=== PATIENT | female | born 1965 | race Caucasian/White ===

== ENCOUNTER 2020-02-08 17:00 | Outpatient (CLI) | payer OTHER, SELFPAY ==
[2020-02-08 17:21] LABS: Hematocrit 36.4 % (35.0-49.0); Hemoglobin 12.1 g/dL (12.0-15.0); Mean Corpuscular HGB Conc 33.2 g/dL (32.0-36.0); Mean Corpuscular Volume 93.3 fL (78.0-102.0); Mean Platelet Volume 11.2 fl (9.2-11.8); Platelet Count Result 203 K/mm3 (150-420); Red Cell Distribution Width 13.3 % (11.6-14.4); White Blood Count 4.7 K/mm3 (4.8-10.8)
[2020-02-08 18:05] LABS: Alanine Aminotransferase 31 U/L (14-59); Alkaline Phosphatase 76 U/L (46-116); Anion Gap 10.8 mmol/L (7-16); Aspartate Amino Transferase 18 U/L (15-37); Bilirubin,Total 0.4 mg/dL (0.00-1.00); Blood Urea Nitrogen 11 mg/dL (7-18); Calcium 8.9 mg/dL (8.5-10.1); Carbon Dioxide 31 mmol/L (21-32); Chloride 103 mmol/L (98-108); Estimated Glomerular Filt Rate > 60; Glucose 82 mg/dL (70-99); Lipase 164 U/L (73-393); Osmolality Calculated 290 mOsm/kg (285-295); Potassium 3.8 mmol/L (3.5-5.1); Sodium 141 mmol/L (136-145); Total Protein 6.9 g/dL (6.4-8.2)
== END 2020-02-08 17:01 | disposition home or self-care (01) ==
LOC: CHSLAB 17:02
PROVIDERS: PCP Family Medicine; Visit Provider Physician Assistant
DX: R10.11 Right upper quadrant pain (principal)
CPT/HCPCS: 36415; 80053; 83690; 85027

== ENCOUNTER 2020-11-08 09:00 | Outpatient (CLI) | payer OTHER, SELFPAY ==
[2020-11-08 10:15] LABS: Thyroid Stimulating Hormone Reflex 0.09 u/IU/mL (0.36-3.74)
[2020-11-08 10:49] LABS: Free T4 Free Thyroxine Reflex 1.17 ng/dL (0.76-1.46)
[2020-11-11 05:06] LABS: Thyroglobulin <0.1 ng/mL (2.8-40.9); Thyroglobulin Antibodies <1 IU/mL (<=1)
== END 2020-11-08 09:01 | disposition home or self-care (01) ==
LOC: CHSLAB 09:03
PROVIDERS: PCP Family Medicine
DX: E89.0 Postprocedural hypothyroidism (principal); Z85.850 Personal history of malignant neoplasm of thyroid
CPT/HCPCS: 36415; 84432; 84439; 84443; 86800

== ENCOUNTER 2021-02-21 17:03 | Outpatient (CLI) | payer OTHER, SELFPAY ==
[2021-02-21 18:00] LABS: Thyroid Stimulating Hormone Reflex 0.25 u/IU/mL (0.36-3.74)
[2021-02-21 18:26] LABS: Free T4 Free Thyroxine Reflex 1.11 ng/dL (0.76-1.46)
== END 2021-02-21 17:04 | disposition home or self-care (01) ==
LOC: CHSLAB 17:04
PROVIDERS: PCP Family Medicine
DX: E89.0 Postprocedural hypothyroidism (principal)
CPT/HCPCS: 36415; 84439; 84443

== ENCOUNTER 2021-03-17 14:06 | Outpatient (CLI) | payer OTHER, SELFPAY ==
--- NOTE | ~2021-03-17 | MM_ITS ---
EXAMINATION: MM screening [facility] BI w teddy HISTORY: Screening TECHNIQUE: Craniocaudal and mediolateral oblique 3-D tomosynthesis images were obtained and synthetic 2-D images were generated. CAD analysis was submitted and interpreted. COMPARISON: Comparison to multiple prior studies sequentially, with oldest reviewed study dated 11/01. BREAST PARENCHYMAL COMPOSITION: There are scattered areas of fibroglandular density. FINDINGS: There is no evidence of suspicious mass, calcification, or architectural distortion to sugg est malignancy in either breast. There has been no suspicious interval change. IMPRESSION: 1. No mammographic evidence of malignancy. 2. Recommend routine screening mammography in one year. BI-RADS Category 1: Negative Reviewed, dictated and finalized at location A.
== END 2021-03-17 14:07 | disposition home or self-care (01) ==
LOC: CHSIMG 14:07
PROVIDERS: PCP Family Medicine; Visit Provider Family Medicine
DX: Z12.31 Encounter for screening mammogram for malignant neoplasm of breast (principal)
CPT/HCPCS: 77063; 77067

== ENCOUNTER 2021-04-22 08:37 | Outpatient (CLI) | payer OTHER, SELFPAY ==
[2021-04-22 08:54] LABS: Hematocrit 37.7 % (35.0-49.0); Hemoglobin 12.5 g/dL (12.0-15.0); Mean Corpuscular HGB Conc 33.2 g/dL (32.0-36.0); Mean Corpuscular Hemoglobin 31.3 pg (27.0-31.0); Mean Corpuscular Volume 94.5 fL (78.0-102.0); Mean Platelet Volume 11.1 fl (9.2-11.8); Platelet Count Result 265 K/mm3 (150-420); Red Blood Count 3.99 M/mm3 (4.20-5.40); Red Cell Distribution Width 13.6 % (11.6-14.4); White Blood Count 3.8 K/mm3 (4.8-10.8)
[2021-04-22 09:58] LABS: Alanine Aminotransferase 19 U/L (14-59); Albumin Level 3.9 g/dL (3.4-5.0); Alkaline Phosphatase 94 U/L (46-116); Anion Gap 6 mmol/L (8-16); Aspartate Amino Transferase 21 U/L (15-37); Bilirubin,Total 0.4 mg/dL (0.00-1.00); Blood Urea Nitrogen 17 mg/dL (7-18); Calcium 8.9 mg/dL (8.5-10.1); Carbon Dioxide 31 mmol/L (21-32); Chloride 104 mmol/L (98-108); Cholesterol 207 mg/dL (0-200); Estimated Glomerular Filt Rate > 60; Glucose 89 mg/dL (70-99); HDL Direct 74 mg/dL (40-60); LDL Cholesterol Calculated 122 mg/dL (<130); Osmolality Calculated 292 mOsm/kg (285-295); Potassium 4.3 mmol/L (3.5-5.1); Sodium 141 mmol/L (136-145); Total Protein 6.7 g/dL (6.4-8.2); Triglycerides 56 mg/dL (0-150)
== END 2021-04-22 08:38 | disposition home or self-care (01) ==
LOC: CHSLAB 08:39
PROVIDERS: PCP Family Medicine; Visit Provider Physician Assistant
DX: Z00.00 Encounter for general adult medical examination without abnormal findings (principal); Z13.1 Encounter for screening for diabetes mellitus; Z13.220 Encounter for screening for lipoid disorders; Z11.52 Encounter for screening for COVID-19; D64.9 Anemia, unspecified
CPT/HCPCS: 36415; 80053; 80061; 85027; 86769

== ENCOUNTER 2021-11-13 11:28 | Outpatient (CLI) | payer OTHER, SELFPAY ==
[2021-11-13 12:31] LABS: Thyroid Stimulating Hormone Reflex 0.09 u/IU/mL (0.36-3.74)
[2021-11-15 03:00] LABS: Thyroglobulin Antibodies <1 IU/mL (<=1)
== END 2021-11-13 11:29 | disposition home or self-care (01) ==
LOC: CHSLAB 11:33
PROVIDERS: PCP Family Medicine
DX: E89.0 Postprocedural hypothyroidism (principal)
CPT/HCPCS: 36415; 84432; 84439; 84443; 86800

== ENCOUNTER 2022-01-08 13:59 | Outpatient (CLI) | payer OTHER, SELFPAY ==
[2022-01-08 15:00] LABS: Free T4 Free Thyroxine 1.11 ng/dL (0.76-1.46); Thyroid Stimulating Hormone 0.07 uIU/mL (0.36-3.74)
== END 2022-01-08 14:00 | disposition home or self-care (01) ==
LOC: CHSLAB 14:02
PROVIDERS: PCP Family Medicine
DX: Z85.850 Personal history of malignant neoplasm of thyroid (principal); E89.0 Postprocedural hypothyroidism
CPT/HCPCS: 36415; 84439; 84443

== ENCOUNTER 2022-03-27 10:10 | Outpatient (CLI) | payer OTHER, SELFPAY ==
[2022-03-27 11:12] LABS: Free T4 Free Thyroxine 1.13 ng/dL (0.76-1.46); Thyroid Stimulating Hormone 0.14 uIU/mL (0.36-3.74)
== END 2022-03-27 10:11 | disposition home or self-care (01) ==
LOC: CHSLAB 10:13
PROVIDERS: PCP Family Medicine
DX: Z85.850 Personal history of malignant neoplasm of thyroid (principal); E89.0 Postprocedural hypothyroidism
CPT/HCPCS: 36415; 84439; 84443

== ENCOUNTER 2022-09-07 11:29 | Outpatient (CLI) | payer OTHER, SELFPAY ==
[2022-09-07 12:21] LABS: Thyroid Stimulating Hormone 0.24 uIU/mL (0.36-3.74)
== END 2022-09-07 11:30 | disposition home or self-care (01) ==
LOC: CHSLAB 11:32
PROVIDERS: PCP Family Medicine
DX: Z85.850 Personal history of malignant neoplasm of thyroid (principal); E89.0 Postprocedural hypothyroidism
CPT/HCPCS: 36415; 84439; 84443

== ENCOUNTER 2023-04-04 12:36 | Outpatient (CLI) | payer OTHER, SELFPAY ==
[2023-04-04 13:31] LABS: Free T4 Free Thyroxine 1.37 ng/dL (0.76-1.46); Thyroid Stimulating Hormone 0.06 uIU/mL (0.36-3.74)
[2023-04-08 04:22] LABS: Thyroid Peroxidase Antibodies 3 IU/mL (<9)
[2023-04-09 14:34] LABS: Thyroid Stimulating Immunoglob <89 % baseline (<140)
== END 2023-04-04 12:37 | disposition home or self-care (01) ==
LOC: CHSLAB 12:39
PROVIDERS: PCP Family Medicine
DX: E89.0 Postprocedural hypothyroidism (principal); Z85.850 Personal history of malignant neoplasm of thyroid
CPT/HCPCS: 36415; 84439; 84443; 84445; 86376

== ENCOUNTER 2023-06-28 10:02 | Outpatient (CLI) | payer OTHER, SELFPAY ==
[2023-06-28 10:54] LABS: Free T4 Free Thyroxine 1.14 ng/dL (0.76-1.46); Thyroid Stimulating Hormone 0.25 uIU/mL (0.36-3.74)
[2023-07-02 05:30] LABS: Thyroglobulin <0.1 ng/mL (2.8-40.9); Thyroglobulin Antibodies <1 IU/mL (<=1)
== END 2023-06-28 10:03 | disposition home or self-care (01) ==
LOC: CHSLAB 10:05
PROVIDERS: PCP Family Medicine
DX: E89.0 Postprocedural hypothyroidism (principal); Z85.850 Personal history of malignant neoplasm of thyroid
CPT/HCPCS: 36415; 84432; 84439; 84443; 86800

== ENCOUNTER 2023-11-16 12:07 | Outpatient (CLI) | payer OTHER, SELFPAY ==
[2023-11-16 13:18] LABS: Free T4 Free Thyroxine 1.19 ng/dL (0.76-1.46); Thyroid Stimulating Hormone 0.21 uIU/mL (0.36-3.74)
== END 2023-11-16 12:08 | disposition home or self-care (01) ==
PROVIDERS: PCP Family Medicine
DX: E89.0 Postprocedural hypothyroidism (principal); Z85.850 Personal history of malignant neoplasm of thyroid
CPT/HCPCS: 36415; 84439; 84443

== ENCOUNTER 2024-04-15 14:01 | Outpatient (CLI) | payer OTHER, SELFPAY ==
[2024-04-15 15:07] LABS: Free T4 Free Thyroxine 1.19 ng/dL (0.76-1.46); Thyroid Stimulating Hormone 0.26 uIU/mL (0.36-3.74)
[2024-04-17 07:54] LABS: Thyroglobulin <0.1 ng/mL; Thyroglobulin Antibodies <1 IU/mL (< or = 1)
== END 2024-04-15 14:02 | disposition home or self-care (01) ==
LOC: CHSLAB 14:04
PROVIDERS: PCP Family Medicine
DX: E89.0 Postprocedural hypothyroidism (principal); Z85.850 Personal history of malignant neoplasm of thyroid
CPT/HCPCS: 36415; 84432; 84439; 84443; 86800

== ENCOUNTER 2024-08-17 12:13 | Outpatient (CLI) | payer OTHER, SELFPAY ==
[2024-08-17 17:07] LABS: Free T4 Free Thyroxine 1.13 ng/dL (0.76-1.46)
== END 2024-08-17 12:14 | disposition home or self-care (01) ==
LOC: CHSLAB 12:16
PROVIDERS: PCP Family Medicine
DX: E89.0 Postprocedural hypothyroidism (principal)
CPT/HCPCS: 36415; 84439; 84443

== ENCOUNTER 2024-11-05 07:53 | Outpatient (CLI) | payer OTHER, SELFPAY ==
[2024-11-05 08:11] LABS: Hematocrit 37.2 % (35.0-49.0); Hemoglobin 12.4 g/dL (12.0-15.0); Mean Corpuscular HGB Conc 33.3 g/dL (32-36); Mean Corpuscular Hemoglobin 31.5 pg (27.0-31.0); Mean Corpuscular Volume 94.4 fL (78.0-102.0); Mean Platelet Volume 10.2 fl (9.2-11.8); Platelet Count Result 229 K/mm3 (150-420); Red Blood Count 3.94 M/mm3 (4.20-5.40); Red Cell Distribution Width 13.2 % (11.6-14.4); White Blood Count 2.7 K/mm3 (4.8-10.8)
[2024-11-05 08:40] LABS: Band Neutrophils Percent 0 % (0-6); Eosinophils Absolute Manual 0.16 K/mm3 (0.02-0.50); Eosinophils Percent Manual 6 % (1-6); Lymphocytes Absolute Manual 1.18 K/mm3 (1.1-4.5); Lymphocytes Percent Manual 44 % (18-44); Monocytes Absolute Manual 0.18 K/mm3 (0.1-0.90); Monocytes Percent Manual 7 % (3-9); Neutrophils Absolute Manual 1.16 K/mm3 (1.7-7.2); Neutrophils Percent Manual 43 % (46-73); Platelet Estimate Adequate (Adequate); Total Cells Counted 100
[2024-11-05 09:55] LABS: Alanine Aminotransferase 27 U/L (14-59); Albumin Level 3.8 g/dL (3.4-5.0); Alkaline Phosphatase 85 U/L (46-116); Anion Gap 10 mmol/L (4-12); Aspartate Amino Transferase 23 U/L (15-37); Bilirubin,Total 0.6 mg/dL (0.00-1.00); Blood Urea Nitrogen 9 mg/dL (7-18); Calcium 8.9 mg/dL (8.5-10.1); Carbon Dioxide 28 mmol/L (21-32); Chloride 105 mmol/L (98-108); Cholesterol 197 mg/dL (0-200); Estimated Glomerular Filt Rate > 60; Folic Acid 16.5 ng/mL (8.6->20); Free T4 Free Thyroxine 1.24 ng/dL (0.76-1.46); Glucose 87 mg/dL (70-99); HDL Direct 83 mg/dL (40-60); LDL Cholesterol Calculated 106 mg/dL (<130); Osmolality Calculated 293 mOsm/kg (285-295); Potassium 4.3 mmol/L (3.5-5.1); Sodium 143 mmol/L (136-145); Thyroid Stimulating Hormone 0.32 uIU/mL (0.36-3.74); Total Protein 6.8 g/dL (6.4-8.2); Triglycerides 41 mg/dL (0-150); Vitamin B12 840 pg/mL (193-986)
[2024-11-07 05:13] LABS: Vitamin D 25 Hydroxy 37 ng/mL (30-100)
[2024-11-09 09:14] LABS: Thyroglobulin <0.1 ng/mL; Thyroglobulin Antibodies <1 IU/mL (< or = 1)
== END 2024-11-05 07:54 | disposition home or self-care (01) ==
PROVIDERS: PCP Family Medicine; Visit Provider Student in an Organized Health Care Education/Training Program
DX: Z00.00 Encounter for general adult medical examination without abnormal findings (principal); E89.0 Postprocedural hypothyroidism
CPT/HCPCS: 36415; 80053; 80061; 82306; 82607; 82746; 84432; 84439; 84443; 85025; 86800

== ENCOUNTER 2024-12-10 13:50 | Outpatient (CLI) | payer OTHER, SELFPAY ==
--- NOTE | ~2024-12-10 | MM_ITS ---
EXAMINATION: MM screening [facility] BI w teddy HISTORY: Screening TECHNIQUE: Craniocaudal and mediolateral oblique 3-D tomosynthesis images were obtained and synthetic 2-D images were generated. CAD analysis was submitted and interpreted. COMPARISON: Comparison to multiple prior studies sequentially, with oldest reviewed study dated 11/01. BREAST PARENCHYMAL COMPOSITION: Not dense: There are scattered areas of fibroglandular density. FINDINGS: There is no evidence of suspicious mass, calcification, or architectural distortion to sugg est malignancy in either breast. There has been no suspicious interval change. IMPRESSION: 1. No mammographic evidence of malignancy. 2. Recommend routine screening mammography in one year. BI-RADS Category 1: Negative Reviewed, dictated and finalized at location B. 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
--- NOTE | ~2024-12-10 | DEXA_ITS ---
Bone Density Report Name: STEWART DURAN Age: 59 Sex: Female Ethnicity: White Date of : 1965 Indication: postmenopausal; screening for osteoporosis; cancer; Referring Provider: JADEN GONZALEZ Study: Bone densitometry was performed. Exam Date: December 10, 2024 Accession number: [id number] Bone Density: Region BMD T-score Z-score Classification AP Spine(L1-L4) 0.977 -0.6 0.7 Normal Femoral Neck (Left) 0.748 -0.9 0.3 Normal Total Hip (Left) 0.807 -1.1 -0.3 Osteopenia Femoral Neck (Right) 0.657 -1.7 -0.5 Osteopenia Total Hip (Right) 0.782 -1.3 -0.5 Osteopenia Femoral Neck Mean 0.703 -1.3 -0.1 Osteopenia Total Hip Mean 0.794 -1.2 -0.4 Osteopenia World Health Organization criteria for BMD impression classify patients as: Normal (T-score at or above -1.0), Osteopenia (T-score between -1.0 and -2.5), or Osteoporosis (T-score at or below -2.5). 10-year Fracture Risk(1): Major Osteoporotic Fracture 7.5% Hip Fracture 0.8% Reported Risk Factors: [place] (), Neck BMD=0.657, BMI=21.9 (1) FRAX(R) Version 3.08. Fracture probability calculated for an untreated patient. Fracture probability may be lower if the patient has received treatment. Clinical Information Provided by Patient: Has used the following medications: Vitamin D, Calcium Has the following medical conditions: Cancer Patient maximum height was 65 Menopause Age: 48 No regular weight bearing exercise Drinks caffeinated beverages Onset of menses at age 16 Number of children 2 Impression: The patient has low bone mass, based on the Right Femoral Neck T-score. Discussion: BONE DENSITY IS LOW AT ONE OR MORE SKELETAL SITES. This patient's lowest T-score is low at one or more skeletal sites. It meets the World Health Organization's (WHO) criteria for ?low bone mass? (T-score between -1.0 and -2.5). The patient's 10-year risk of fracture as calculated by FRAX is less than the threshold where pharmacological therapy is recommended by the National Osteoporosis Foundation (NOF). However, all treatment decisions require clinical judgment and consideration of individual patient factors, including patient preferences, comorbidities, previous drug use, risk factors not captured in the FRAX model (e.g., frailty, falls, vitamin D deficiency, increased bone turnover, interval significant decline in bone density) and possible under or overestimation of fracture risk by FRAX. The patient should follow a healthful lifestyle (good nutrition with adequate calcium and vitamin D, and appropriate weight-bearing exercise). Follow-Up: Consider repeating this study in 2 to 3 years to reassess this patient's status, or sooner if there is some new clinical indication. Reported by: LEFTY on 12/10/2024 2:15:00 PM. Reviewed, dictated and finalized at location AMaddie LANTIGUA
== END 2024-12-10 13:51 | disposition home or self-care (01) ==
LOC: CHSIMG 13:51
PROVIDERS: PCP Family Medicine; Visit Provider Student in an Organized Health Care Education/Training Program
DX: Z12.31 Encounter for screening mammogram for malignant neoplasm of breast (principal); Z78.0 Asymptomatic menopausal state; M85.89 Other specified disorders of bone density and structure, multiple sites
CPT/HCPCS: 77063; 77067; 77080

== ENCOUNTER 2025-02-24 00:16 | Day surgery (SDC) | payer OTHER, SELFPAY ==
[2025-02-15 09:30] VITALS: BMI 22.3
--- OUTSIDE RECORDS SUMMARY | 2025-02-24 00:19 | XMS_ITS | Data Portability ---
Author Organization [facility] Address [address] [place] [address] Care Team Providers Care Personal Financial Representative Name Role Phone EDDIE SPARROW Primary Care Provider Assessment Encounter Date Assessment Date Assessment LastModified by Organization Details LastModified Time 10/23/2021 10/23/2021 healthy female exam/menopaus e patient declines std testing pap done, discussed guidelines mammogram ordered and encouraged colonoscopy referral placed dexa baseline in next 5 years discussed estrace cream if needed for atrophy. she will consider. Encouraged weight bearing exercise and 1500mg daily of Calcium with Vitamin D FU 1 year or prn [email or web address] Not available 10/23/2021 15:33:15 Plan of Treatment Reminders Order Date Submit Date Provider Last Modified By Organization Details Last Modified Time Details Appointments None record ed. Lab None record ed. Referral None record ed. Procedures None record ed. Surgeries None record ed. Imaging None record ed. Medication Orders None record ed. Patient TargetsNo targets recorded. Patient InstructionsNo instructions recorded. Reason for Referral None Reported. Results Created Date Observation Date Name Description Value Unit Range Abnormal Flag Note LastModifiedBy Organization Detail LastModifiedTime 10/23/20 21 10/23/2021 IMAGE GUIDE D PAP AND HPV REGAR DLESS image guided Pap, HPV regardless of Pap result SEE RESULT S BELOW CASE REPOR T: Cytol ogy Gynec ologi vinay Repor t Case: [id number] Autho shahla g Provi montse: Haydee Contreras MD Colle cted: 10/23 1618 Order ing Locat ion: [place] [facility] Recei dick: 10/24 0103 First Scree n: Rigo Burks ed, CT Speci men: Scree jose luis Pap - Image d, Cervi x STATE MENT OF ADEQU ACY: Satis facto ry for evalu ation Trans forma tion zone compo nent prese nt FINAL DIAGN OSIS: Negat pipo for Intra epith elial Lesio n or Patti grayson (NIL) . Elect noe holm dante d by Rigo Burks ed, CT on 2020 at 6:58 PM ----- ----- ----- ----- ----- ----- ----- ----- ----- ----- ----- ----- ----- ----- ----- ----- ----- ---- HPV RESUL TS: HPV mRNA E6/E7 : No HPV mRNA Detec maye NOTE: This high risk HPV mRNA assay detec ts fourt een high- risk HPV types (16, 18, 31, 33, 35, 39, 45, 51, 52, 56, 58, 59, 66, 68) witho ut diffe renti ation . COMME NT: Note: This speci men was revie wed by a Cytot echno logis t and/o r Patho logis t (as indic ated in this repor t) after evalu ation using the Thinp rep Imagi ng Syste m. CLINI VINAY INFOR MATIO N: Menst rual Statu s: LMP (if appli cable ): Clini vinay Histo ry/Pr eviou s Pap: Type of Neopl lidia (if appli cable ): Signi fican t Clini vinay Findi ngs: Other Histo ry: Hormo brody (if appli cable ): PAP EDUCA CHIO L NOTE: The Pap Test is a scree jose luis test with an inher ent false negat pipo rate. Liqui d-bas e sampl ing may decre ase, but will not elimi susan, false negat pipo resul ts. A negat pipo resul t does not precl ude the prese nce and/o r devel opmen t of disea se, since the prese nce of abnor mal cells in the sampl e depen ds on the locat ion of the lesio n and sampl ing techn ique. Ros nued regul ar scree jose luis is the best metho d of cance r preve ntion . If repor maye cytol ogic findi ng do not corre late with physi vinay and/o r histo rical findi ngs, furth er inves tigat ion is recom gene d, as clini michelle samuels nted. Not Available [facility] (Lab) [address], [place], [address], 11/01/2021 20:00:29 Result Notes None recorded. Procedures Surgical History Date Name Laterality Status Provider Name and Address Organization Details Recorded Time 12/02/19 20 Date of Last Mammogram completed [facility] 10/23/2021 15:05:11 12/02/19 18 appendectomy completed [facility] 10/23/2021 14:50:59 12/02/19 16 thyroidectomy completed [facility] 10/23/2021 14:50:51 Imaging Results None recorded. Procedure Notes None recorded. Medical Equipment None Reported. Allergies No known drug allergies Medications Name Sig Start Date Stop Date Status Note LastModified by Organization Details LastModified Time valacyclovir 1 gram tablet 10/23 completed Not Available Not Available Not Available levothyroxine 88 mcg tablet active Not Available Not Availabl e Not Available omeprazole 20 mg capsule,delayed release active Not Available Not Available Not Available Vitals Date Recorded Body height Body mass index (BMI) Body weight Systolic blood pressure Diastolic blood pressure Systolic blood pressure Diastolic blood pressure Provider Name and Address Organization Details Last Updated DateTime 1 162.56 cm 20.9 kg/m2 56849.2 7 g 147 mm[Hg] 76 mm[Hg] 122 mm[Hg] 78 mm[Hg] [facility] 15:00:07 Social History None recorded. Functional Status None recorded. Mental Status None recorded. Family History Relationship Description Onset Age of this Age Resolved Age Notes LastModified by Organization Details LastModified Time Mother Hypertensive disorder [email or web address] Not available 2020 15:04:17 Father Hypertensive disorder [email or web address] Not available 2020 15:04:17 Father Heart disease smcaley Not available 2020 15:04:26 Brother Hypertensive disorder smcaley Not available 2020 15:04:17 Maternal Grandmother Carcinoma in situ of breast smcaley Not available 2020 15:04:41 Maternal Grandmother Diabetes mellitus [email or web address] Not available 2020 15:04:54 Maternal Aunt Diabetes mellitus [email or web address] Not available 2020 15:04:54 Medical History Condition Response Other N Blood Transfusion N Dermatologic Disorders N Gestational Diabetes N Anxiety Disorder N Autoimmune disease N Arthritis N Polyps N Infertility N Acid Reflux (GERD) N Cancer N Varicosities N Stroke N Neurologic/Epilepsy N Fibromyalgia N Headaches N Kidney Disease N Heart Problems N Kidney or Bladder Problems N Eating Disorder N Art (IVF or FET) N Hepatitis/Liver Disease N No Past Medical History N Urinary Tract Infection N Asthma N Trauma/Violence N Thrombophilias N Allergies (Food, seasonal, environmental ) N Breast Cancer N Drug/Latex Allergies/Reactions N Lung Disease N Defects or Inherited Disease N Breast Problem N Hematologic disorders N Anesthesia Complications N History of STI N Deep Vein Thrombosis N Polycystic ovary syndrome N History of abnormal pap N Endometriosis N High Cholesterol N Thyroid Problems N GI Problems N Anemia N Psychiatric Illness N Ovarian Cancer N Diabetes N Pulmonary (TB, Asthma) N Eczema N Abuse/Domestic Violence N Depression/ depression N Heart Disease N Pre-Eclampsia N Hypertension N Osteoporosis N Gynecological History Statement/Question Response Current Control Method None Date of Last Mammogram 12/02/2019 14 Obstetrics History GPAL:G 2 P 2 0 0 2 Type Value Full Term 2 Living 2 Total 2 Past Encounters Encounter ID Performer Location Encounter Start Date Encounter Closed Date Diagnosis/Indication Diagnosis SNOMED-CT Code Diagnosis ICD10 Code Diagnosis Note [id number] Haydee Mcdowell MD [facility] [address] [address] 10/23/2021 14:47:24 10/23/2021 15:35:05 Gynecologic examination 89162324 Z01.419 Atrophic vaginitis 47178 000 N95.2 Health Concerns Section Related Observation LastModified by Organization Detai ls LastModified Time None Recorded Concern Status LastModified by Organization Details LastModified Time None Recorded Advance Directives Directive None Recorded Payers Encounter Date Sequence Insurance Name Policy Number Policy Gutierrez Covered Member ID Gutierrez Member ID Guarantor Name 10/23/2021 1 [employer] - DOS PRIOR TO 21 - [facility] BENEFITS PLAN Kin Baxter [id number] OI Notes Date Note Type Note Provider Name and Address Organization Details Recorded Time 10/23/2021 text/html Patient is a 56yo who presents for an annual exam. menopause 48yo , no bleeding, no concerns. last pap-2016, all normal mammo-2020 colonoscopy-none dexa-none menopause-48yo sexually active-y seatbelts-y exercise-y depression-denie s domestic violence-denies tobacco-n concerns-n Haydee Mcdowell MD [address], [place], [address], [facility] 10/23/2021 15:33:49 OBGyn Episode Ob Episode Information Episode Created Date Number of Fetuses Patient Bloodtype Patient rh Status Prepregnancy Weight lbs Domestic Partner Domestic Partner Phone Father Name Seafood Packer Status 10/23/20 1 CLOSED Fetus Data First Name Last Name Admitted to NICU Weight (g) Sex Living Outcome Pediatric Complications Fetus ID Race Codes Race Delivery Type M [id number] Lucas Calculation Initial Lucas Date Initial Exam Date Initial Exam Provider Initial Ultrasound Date Last Menstrual Period Date Ultra Sound Weeks Gestation 0 Eighteen To Twenty Week Lucas Update Ultra Sound Date Fundal Height At Umbil Quickening Date Ultra Sound Latest Weeks Gestation Final Lucas Confirmed By Final Lucas Confirmed Date Final Lucas Date Ultra Sound Latest Days Gestation 0 0 Menstrual History Last Menstrual Date Menses Monthly On Bcp Conception Prior Menses Frequency Hcg Plus Date Menarche Onset Age Delivery Information Delivery Date Delivery Type Labor Anesthesia Weeks Gestation Incision Type Labor Labor Length Hrs Delivered By Post Complications Tubal Sterilization Discharge Date Comments 0 Discharge Information Feeding Method Contraceptive Method Maternal HG B and HCT Levels Ob Episode Information Episode Created Date Number of Fetuses Patient Bloodtype Patient rh Status Prepregnancy Weight lbs Domestic Partner Domestic Partner Phone Father Name Seafood Packer Status 10/23/20 21 1 CLOSED Fetus Data First Name Last Name Admitted to NICU Weight (g) Sex Living Outcome Pediatric Complications Fetus ID Race Codes Race Delivery Type M [id number] Lucas Calculation Initial Lucas Date Initial Exam Date Initial Exam Provider Initial Ultrasound Date Last Menstrual Period Date Ultra Sound Weeks Gestation 0 Eighteen To Twenty Week Lucas Update Ultra Sound Date Fundal Height At Umbil Quickening Date Ultra Sound Latest Weeks Gestation Final Lucas Confirmed By Final Lucas Confirmed Date Final Lucas Date Ultra Sound Latest Days Gestation 0 0 Menstrual History Last Menstrual Date Menses Monthly On Bcp Conception Prior Menses Frequency Hcg Plus Date Menarche Onset Age Delivery Information Delivery Date Delivery Type Labor Anesthesia Weeks Gestation Incision Type Labor Labor Length Hrs Delivered By Post Complications Tubal Sterilization Discharge Date Comments 3 Discharge Information Feeding Method Contraceptive Method Maternal HG B and HCT Levels
--- OUTSIDE RECORDS SUMMARY | 2025-02-24 00:19 | XMS_ITS | Clinical Summary ---
Author Organization [facility] Address [address] [place] [address] Care Team Providers Care Food Service Utility Worker Name Role Phone Karina Salamanca MD Primary Care Provider [phone] Allergies No known active allergies Medications omeprazole (PriLOSEC) 20 mg capsuleIndications :Laryngopharyngeal reflux (LPR) TAKE 1 CAPSULE BY MOUTH EVERY DAY 90 capsule 1 11/21/20 20 Active valACYclovir (VALTREX) 1 gram tablet valacyclovir 1 gram tablet TAKE 1 TABLET BY MOUTH EVERY 8 HOURS NEEDED FOR COLD SORES Active levothyroxine (SYNTHROID) 75 mcg tabletIndications: History of thyroid cancer,Postoperati ve hypothyroidism TAKE 1 TABLET BY MOUTH 1 DAY PER WEEK IN THE MORNING 30-60 MINS PRIOR TO BREAKFAST 12 tablet 2 08/24/20 24 Active levothyroxine (SYNTHROID) 88 mcg tabletIndications: History of thyroid cancer,Postoperati ve hypothyroidism TAKE 1 TABLET BY MOUTH 6 DAYS PER WEEK IN THE MORNING 30-60 MINS PRIOR TO BREAKFAST 72 tablet 2 08/24/[address] (VOLTAREN) 50 mg EC tablet 50 MG ORALLY TWICE A DAY 12/25/19 25 Active Synthroid 50 mcg tablet Take 1 tablet (50 mcg total) by mouth daily 28 tablet 01/12/20 25 Active Active Problems Problem Noted Date Diagnosed Date Laryngopharyngeal reflux (LPR) 08/03/2020 Postoperative hypothyroidism 08/04/2018 Assessment & Plan (12/09/2022 10:25 PM STITCH BURNISHER): Clinically euthyroid Continue current thyroid hormone replacement Check TSH/FT4 Assessment & Plan (11/21/2021 8:41 AM STITCH BURNISHER): Most recent TSH is <0.1, but Ms. Duran notes she feels well and is reluctant to decrease her thyroid hormone supplementation. Dose of LT4 was previously decreased by 1/2 tab per week, and she notes that she felt worse on that regimen, with less energy. Will continue current dose of LT4 88 mcg, which she is taking appropriately, but change to brand name Synthroid to reduce dose variability and repeat labs in 4-6 weeks. If TSH of < 0.1 persists, will require a dose adjustment. Discussed long- term implications of subclinical hyperthyroidism (loss of bone mass and increased risk of a. Fib, juan j after the age of 60). Assessment & Plan (11/20/2020 1:59 PM STITCH BURNISHER): Clinically euthyroid and feeling well, although TSH is < 0.1 at 0.09 Given that she is clinically euthyroid and is not exhibiting signs or symptoms of iatrogenic hyperthyroidism, will continue current thyroid hormone replacement and repeat thyroid labs in 6-8 weeks, to monitor TSH trend. Assessment & Plan (08/04/2018 3:18 PM CDT): Appears clinically euthyroid. Will check TSH, FT4. History of thyroid cancer 08/04/2018 Assessment & Plan (12/09/2022 10:26 PM STITCH BURNISHER): No evidence of recurrence based on thyroid US today or physical exam Will follow Tg and Tg ab Assessment & Plan (11/21/2021 8:42 AM STITCH BURNISHER): Ms. Duran may have been a candidate for COLLADO initially, given previously persistent Tg ab elevation, age > 40, multifocal disease with extra thyroid invasion; however, she is not a high risk patient, and her Tg and Tg antibody are now negative and her thyroid US is without evidence of tumor recurrence. Continue annual follow up with Tg/Tg ab, keep TSH at the lower limit of normal Follow up neck US She will call if she develops any new neck symptoms Assessment & Plan (11/20/2020 1:58 PM STITCH BURNISHER): No recurrence by Tg, Tg ab or prior US Will follow up with an US, since last one was >2 years ago, for screening. However, low suspicion for disease recurrence, singe her Tg and Tg ab have been consistent with neck imaging Assessment & Plan (08/04/2018 3:19 PM CDT): 1. Papillary thyroid cancer: -Ms. Duran may have been a candidate for COLLADO initially, given persistent Tg ab elevation, age > 40, multifocal disease with extra thyroid invasion; however, she is not a high risk patient, and her Tg and Tg antibody are now negative -Repeat Tg and Tg Ab now -Repeat thyroid US now Encounters Date Type Department Care Team Description 01/12/2025 3:40 PM STITCH BURNISHER Office Visit [facility] Endocrinology Metabolism and Lipid [address] [facility] [address] [place] [address] [place] [address] Giuliana Manley MD Postoperative hypothyroidism (Primary Dx); History of thyroid cancer 01/12/2025 1:10 PM STITCH BURNISHER - 01/12/2025 11:59 PM STITCH BURNISHER Hospital Encounter [facility] [address] [place] [address] History of thyroid cancer Discharge Disposition: Discharge to home or self care from Last 3 Months Surgical History Surgery Date Site/Laterality Comments APPENDECTOMY THYROIDECTOMY NECK MASS EXCISION 10/02/2016 Right Medical History Medical History Date Comments Cancer (HCC) head and neck Gastric reflux Varicella Papillary thyroid carcinoma (HCC) Hearing loss Thyroid disease GERD (gastroesophageal reflux disease) Family History Medical History Relation Name Comments Hypertension Brother Heart disease Father Family history of cardiac disorder - (Added by TW Conv) Hypertension Father Family history of hypertension - (Added by TW Conv) Hypertension Mother Family history of hypertension - (Added by TW Conv) Hypertension Son Family history of hypertension - (Added by TW Conv) Relation Name Status Comments Brother Father Mother Son Social History Tobacco Use Types Packs/Day Years Used Date Smoking Tobacco: Never Smokeless Tobacco: Never Tobacco Cessation:Counseling Given: Not Answered Comments Unknown Sex and Gender Information Value Date Recorded Sex Assigned at Not on file Legal Sex Female 6:10 AM STITCH BURNISHER Gender Identity Female 06/11/2018 10:33 AM CDT Sexual Orientation Straight 11/11/2020 6: 44 AM STITCH BURNISHER Obstetrics History Last Filed Vital Signs Vital Sign Reading Time Taken Comments Blood Pressure 148/78 01/12/2025 3:05 PM STITCH BURNISHER Pulse 69 01/12/2025 3:05 PM STITCH BURNISHER Temperature 36.8 C (98.2 F) 01/12/2025 3:05 PM STITCH BURNISHER Respiratory Rate - - Oxygen Saturation 97% 10/02/2016 12:54 PM CDT Inhaled Oxygen Concentration - - Weight 58 kg (127 lb 12.8 oz) 01/12/2025 3:05 PM STITCH BURNISHER Height 165.1 cm (5' 5 ) 01/12/2025 3:05 PM STITCH BURNISHER Body Mass Index 21.27 01/12/2025 3:05 PM STITCH BURNISHER Plan of Treatment Health Maintenance Due Date Last Done Comments Breast Cancer Screening-Mammogram 1966 Cervical Cancer Screening 1966 Colon Cancer Screening-Colonoscopy 1966 Depression Screening 1966 Hepatitis C Screening 1966 Hepatitis B Screening 1984 Regular Well Visit/Exam 18-64 1984 Zoster Vaccine (1 of 2) 2016 Influenza Vaccine (#1) 2024 DTaP/Tdap/Td Vaccine (2 - Td or Tdap) 06/12/2028 06/12/2018 Pneumococcal vaccine <65 Aged Out No longer eligible based on patient's age to complete this topic Procedures Procedure Name Priority Date/Time Associated Diagnosis Comments US THYROID Schedule Routine, Read Routine (OP Routine) 01/12/2025 2:16 PM STITCH BURNISHER History of thyroid cancer from Last 3 Months Results * US Thyroid (01/12/2025 2:16 PM STITCH BURNISHER) Anatomical Region Laterality Modality Head and Neck N/A Ultrasound 01/12/2025 2:32 PM STITCH BURNISHER Impressions 01/12/2025 2:32 PM STITCH BURNISHER 1. No evidence of tumor recurrence. Electronically signed by: Melissa Jean-Baptiste M.D. Narrative 01/12/2025 2:32 PM STITCH BURNISHER EXAMINATION: POST THYROIDECTOMY SONOGRAM HISTORY: 59-year-old woman with history of T1b multifocal papillary thyroid cancer status post total thyroidectomy in 2016, no rigoberto metastases, no further treatment, most recent was undetectable in April 2024. COMPARISON: 11/14/2022 sonogram FINDINGS: There are postoperative changes of thyroidectomy. There is no evidence of tumor recurrence in the thyroid bed. There are 2 subjacent benign-appearing lymph nodes in the left superior thyroidectomy bed, demonstrating normal hilar vascularity, and are unchanged from prior. There are benign appearing lymph nodes within the central and both lateral compartments of the neck. No suspicious lymph nodes are identified. A mildly prominent left level 4 lymph node is morphologically benign and demonstrates normal hilar vascularity, without suspicious features, also unchanged from prior. Procedure Note Melissa Jean-Baptiste MD - 01/12/2025 EXAMINATION: POST THYROIDECTOMY SONOGRAM HISTORY: 59-year-old woman with history of T1b multifocal papillary thyroid cancer status post total thyroidectomy in 2015, no rigoberto metastases, no further treatment, most recent was undetectable in April 2024. COMPARISON: 11/14/2022 sonogram FINDINGS: There are postoperative changes of thyroidectomy. There is no evidence of tumor recurrence in the thyroid bed. There are 2 subjacent benign-appearing lymph nodes in the left superior thyroidectomy bed, demonstrating normal hilar vascularity, and are unchanged from prior. There are benign appearing lymph nodes within the central and both lateral compartments of the neck. No suspicious lymph nodes are identified. A mildly prominent left level 4 lymph node is morphologically benign and demonstrates normal hilar vascularity, without suspicious features, also unchanged from prior. IMPRESSION: 1. No evidence of tumor recurrence. Electronically signed by: Melissa Jean-Baptiste M.D. us Giuliana Manley MD [facility] PROCEDURES Final Result from Last 3 Months Insurance [employer] [facility] OPEN ACCESS [facility] [id number] Care Teams Food Service Utility Worker Relationship Specialty Start Date End Date Karina Salamanca MD PCP - General 01/03/18
--- OUTSIDE RECORDS SUMMARY | 2025-02-24 00:19 | XMS_ITS | Referral Summary ---
Author Organization [facility] Address [address] [place] [address] Care Team Providers Care Speck Dyer Name Role Phone Karina Salamanca MD Primary Care Provider Encounters Date Type Department Care Team Description 01/12/2025 1:10 PM SUPERVISOR CONTINGENTS - 01/12/2025 11:59 PM SUPERVISOR CONTINGENTS Hospital Encounter [facility]) [address] [place] [address] History of thyroid cancer Discharge Disposition: Discharge to home or self care 01/12/2025 3:40 PM SUPERVISOR CONTINGENTS Office Visit [facility] Endocrinology Metabolism and Lipid [address] [facility] [address] [place] [address] [place] [address] Giuliana Manley MD Postoperative hypothyroidism (Primary Dx); History of thyroid cancer from Last 3 Months Allergies No known active allergies Medications omeprazole [...] 08/04/2018 Assessment & Plan (12/09/2022 10:25 PM SUPERVISOR CONTINGENTS): Clinically euthyroid Continue current thyroid hormone replacement Check TSH/FT4 Assessment & Plan (11/21/2021 8:41 AM SUPERVISOR CONTINGENTS): Most recent TSH is <0.1, but Ms. [...] 61). Assessment & Plan (11/20/2020 1:59 PM SUPERVISOR CONTINGENTS): Clinically euthyroid and feeling well, although TSH [...] 08/04/2018 Assessment & Plan (12/09/2022 10:26 PM SUPERVISOR CONTINGENTS): No evidence of recurrence based on thyroid US today or physical exam Will follow Tg and Tg ab Assessment & Plan (11/21/2021 8:42 AM SUPERVISOR CONTINGENTS): Ms. Duran may have been a candidate [...] symptoms Assessment & Plan (11/20/2020 1:58 PM SUPERVISOR CONTINGENTS): No recurrence by Tg, Tg ab or [...] Tg Ab now -Repeat thyroid US now Social History Tobacco Use Types Packs/Day Years Used Date Smoking Tobacco: Never Smokeless Tobacco: Never Tobacco Cessation:Counseling Given: Not Answered Comments Unknown Sex and Gender Information Value Date Recorded Sex Assigned at Not on file Legal Sex Female 6:10 AM SUPERVISOR CONTINGENTS Gender Identity Female 06/11/2018 10:33 AM CDT Sexual Orientation Straight 11/11/2020 6: 44 AM SUPERVISOR CONTINGENTS Last Filed Vital Signs Vital Sign Reading Time Taken Comments Blood Pressure 148/78 01/12/2025 3:05 PM SUPERVISOR CONTINGENTS Pulse 69 01/12/2025 3:05 PM SUPERVISOR CONTINGENTS Temperature 36.8 C (98.2 F) 01/12/2025 3:05 PM SUPERVISOR CONTINGENTS Respiratory Rate - - Oxygen Saturation 97% 10/02/2016 12:54 PM CDT Inhaled Oxygen Concentration - - Weight 58 kg (127 lb 12.8 oz) 01/12/2025 3:05 PM SUPERVISOR CONTINGENTS Height 165.1 cm (5' 5 ) 01/12/2025 3:05 PM SUPERVISOR CONTINGENTS Body Mass Index 21.27 01/12/2025 3:05 PM SUPERVISOR CONTINGENTS Plan of Treatment Not on file Procedures Procedure Name Priority Date/Time Associated Diagnosis Comments US THYROID Schedule Routine, Read Routine (OP Routine) 01/12/2025 2:16 PM SUPERVISOR CONTINGENTS History of thyroid cancer from Last 3 Months Results * US Thyroid (01/12/2025 2:16 PM SUPERVISOR CONTINGENTS) Anatomical Region Laterality Modality Head and Neck N/A Ultrasound 01/12/2025 2:32 PM SUPERVISOR CONTINGENTS Impressions 01/12/2025 2:32 PM SUPERVISOR CONTINGENTS 1. No evidence of tumor recurrence. Electronically signed by: Melissa Jean-Baptiste M.D. Narrative 01/12/2025 2:32 PM SUPERVISOR CONTINGENTS EXAMINATION: POST THYROIDECTOMY SONOGRAM HISTORY: 59-year-old woman [...] Melissa Jean-Baptiste M.D. us Giuliana Manley MD [facility] PROCEDURES Final Result from Last 3 Months Insurance [email or web address] [facility] [email or web address] OPEN ACCESS [facility] [id number] Care Teams Speck Dyer Relationship Specialty Start Date End Date Karina Salamanca MD PCP - General 01/03/18
[2025-02-24 06:20] VITALS: BP 129/50; PULSE 61; RESP 16; TEMP 36.2; O2SAT 100; BMI 21.1
[2025-02-24] MEDS: LACTATED RINGERS 1,000 ML 150 ML IV CONT (06:38)
--- NOTE | 2025-02-24 07:20 | PM.IMHP ---
H&P: HPI History of Present Illness Date/Time: 02/24/25 07:20 Chief Complaint: Screening colonoscopy Narrative: This is the patient's first colonoscopy. There are no GI symptoms and there is no family history of colorectal cancer. Review of Systems Review of Systems: All systems reviewed & are unremarkable except as noted in HPI and below PMFSH Past Medical History Medical History GERD (gastroesophageal reflux disease) HSV (herpes simplex virus) infection Hypothyroidism Surgical History Surgical History History of thyroidectomy Family History Family History Other Diabetes mellitus Family history of cardiovascular disease Family history of coronary artery disease Hypertension Social History Social History Smoking status: Never smoker Second hand tobacco smoke exposure: No Alcohol intake: current Alcohol use details: rarely Substance use: never Substance use type: does not use Do You Feel Safe in your Home?: Yes Lack of Transportation: No Lack of Food: Never True Current Housing: I Have Housing Concerned About Future Housing: No Difficulty Paying Gas/Electric Bills: No Difficulty Paying for Meds: No Currently Unemployed: No Education: Bachelor's Degree Difficulty w/ Childcare or Family Care: No Living arrangements: with family Occupation/Education: retired Additional occupation/education comments: [employer] Gender identity (if verbalized by the patient): Female Spiritual care concerns: No Meds Home Medications and Allergies Home Medications ?Medication ?Instructions ?Recorded ?Confirmed ?Type omeprazole 40 mg capsule,delayed 40 mg PO DAILY 02/08/20 02/24/25 History release levothyroxine 88 mcg capsule 88 mcg PO DAILY 07/23/22 02/24/25 History valacyclovir 1 gram tablet 1,000 mg PO Q8H PRN cold sores 10/12/24 02/15/25 Rx (Valtrex) #270 tabs levothyroxine 75 mcg capsule 75 mcg PO DAILY 01/15/25 02/24/25 History diclofenac sodium 50 mg See Rx Instructions .Route 01/20/25 02/24/25 Rx tablet,delayed release .COMPLEX #60 tabs Allergies Allergy/AdvReac Type Severity Reaction Status Date / Time No Known Allergies Allergy Verified 02/24/25 06:19 Vital Signs Vital Signs - 24 hr 02/24/25 06:20 Temperature 97.1 F L Pulse Rate 61 Respiratory Rate 16 Blood Pressure 129/50 L Pulse Oximetry 100 Oxygen Delivery Room Air Exam Const: General: cooperative and healthy appearing Resp: Effort & Inspection: normal respiratory effort and able to speak in complete sentences Auscultation: clear to auscultation bilaterally Cardio: Rate: regular rate Rhythm: regular rhythm GI: Inspection: normal to inspection GI Palp: No No hepatosplenomegaly present Auscultation: normal bowel sounds Rectal Exam: deferred Skin: General skin exam: normal color Psych: Appearance: grossly normal Mental Status: mental status grossly normal Assessment and Plan Assessment and plan (1) Encounter for screening colonoscopy: Code(s): Z12.11 - Encounter for screening for malignant neoplasm of colon Status: Acute Assessment and Plan: The patient is deemed a good candidate for the procedure. Consent signed. Will proceed.
--- NOTE | 2025-02-24 07:23 | P.PNAN_ITS ---
Anes - Initial Pre Proc Eval Procedure: Operation Date: 02/24/25 07:30 Proposed Procedures p Screening Colonoscopy - Parker Beck MD Date/Time: 02/24/25 07:23 Surgeon: Parker Beck MD Pre Op Diagnosis: screening colon Patient Data Age: 59 Gender: F Height: 1.63 m Weight: 55.8 kg Last Vital Signs Temp 97.1 F L 02/24/25 06:20 Pulse 61 02/24/25 06:20 Resp 16 02/24/25 06:20 BP 129/50 L 02/24/25 06:20 Pulse Ox 100 02/24/25 06:20 O2 Del Method Room Air 02/24/25 06:20 Allergies Allergy/AdvReac Type Severity Reaction Status Date / Time No Known Allergies Allergy Verified 02/24/25 06:19 Home Medications ?Medication ?Instructions ?Recorded ?Confirmed ?Type omeprazole 40 mg capsule,delayed 40 mg PO DAILY 02/08/20 02/24/25 History release levothyroxine 88 mcg capsule 88 mcg PO DAILY 07/23/22 02/24/25 History valacyclovir 1 gram tablet 1,000 mg PO Q8H PRN cold sores 10/12/24 02/15/25 Rx (Valtrex) #270 tabs levothyroxine 75 mcg capsule 75 mcg PO DAILY 01/15/25 02/24/25 History diclofenac sodium 50 mg See Rx Instructions .Route 01/20/25 02/24/25 Rx tablet,delayed release .COMPLEX #60 tabs Patient hx anesthesia problems: post op nausea/vomiting (1 time w thyroid sx many years ago. ) Family hx anesthesia problems: none Results Review: All pre-operative results and documents have been reviewed as part of the pre- operative evaluation. [facility] Past Medical History Medical History GERD (gastroesophageal reflux disease) HSV (herpes simplex virus) infection Hypothyroidism Surgical History Surgical History History of thyroidectomy Family History Family History Other Diabetes mellitus Family history of cardiovascular disease Family history of coronary artery disease Hypertension Social History Social History Smoking status: Never smoker Second hand tobacco smoke exposure: No Alcohol intake: current Alcohol use details: rarely Substance use: never Substance use type: does not use Do You Feel Safe in your Home?: Yes Lack of Transportation: No Lack of Food: Never True Current Housing: I Have Housing Concerned About Future Housing: No Difficulty Paying Gas/Electric Bills: No Difficulty Paying for Meds: No Currently Unemployed: No Education: Bachelor's Degree Difficulty w/ Childcare or Family Care: No Living arrangements: with family Occupation/Education: retired Additional occupation/education comments: [employer] Gender identity (if verbalized by the patient): Female Spiritual care concerns: No Anes - Eval Final PreProcedure Day of Procedure 02/24/25 07:23 Patient weight: normal Lungs: normal air movement Airway: Mallampati scale class 1 Neurological: alert and oriented Last oral intake: >/= 8 hours ASA classification: II Emergent: no Anesthetic plan: proceed Anesthesia type and monitoring: general GIVS and standard monitoring Results Review: All pre-operative results and documents have been reviewed as part of the pre- operative evaluation. Hypothyroidism. Informed Consent: The patient's anesthetic plan and its attendant risks and benefits were disc ussed with the patient/family/POA. Questions were solicited and answers provided to the satisfaction of the patient/family/POA.
[2025-02-24 07:47] VITALS: BP 99/58; PULSE 73; RESP 16; O2SAT 100
[2025-02-24 07:57] VITALS: BP 107/54; PULSE 64; RESP 19; O2SAT 100
[2025-02-24 08:07] VITALS: BP 115/53; PULSE 56; RESP 15; O2SAT 100
== END 2025-02-24 08:15 | disposition home or self-care (01) ==
PROVIDERS: PCP Family Medicine; Referring Provider Student in an Organized Health Care Education/Training Program; Visit Provider Internal Medicine Gastroenterology
PROC: 0DJD8ZZ Inspection of Lower Intestinal Tract, Via Natural or Artificial Opening Endoscopic (ICD-10-PCS; CPT 45378; principal; 2025-02-24 07:30)
DX: Z12.11 Encounter for screening for malignant neoplasm of colon (principal); K64.8 Other hemorrhoids
CPT/HCPCS: 45378; J2003; J2704; J7120

== ENCOUNTER 2025-03-08 10:54 | Outpatient (CLI) | payer OTHER, SELFPAY ==
[2025-03-08 11:16] LABS: Hematocrit 39.6 % (35.0-49.0); Hemoglobin 12.8 g/dL (12.0-15.0); Mean Corpuscular HGB Conc 32.3 g/dL (32-36); Mean Corpuscular Hemoglobin 31.4 pg (27.0-31.0); Mean Corpuscular Volume 97.3 fL (78.0-102.0); Mean Platelet Volume 10.8 fl (9.2-11.8); Platelet Count Result 255 K/mm3 (150-420); Red Blood Count 4.07 M/mm3 (4.20-5.40); Red Cell Distribution Width 13.4 % (11.6-14.4); White Blood Count 3.3 K/mm3 (4.8-10.8)
[2025-03-08 11:57] LABS: Band Neutrophils Percent 0 % (0-6); Basophils Absolute Manual 0.03 K/mm3 (0-0.1); Basophils Percent Manual 1 % (0-1); Eosinophils Absolute Manual 0.16 K/mm3 (0.02-0.50); Eosinophils Percent Manual 5 % (1-6); Lymphocytes Absolute Manual 1.18 K/mm3 (1.1-4.5); Monocytes Absolute Manual 0.16 K/mm3 (0.1-0.90); Monocytes Percent Manual 5 % (3-9); Neutrophils Absolute Manual 1.74 K/mm3 (1.7-7.2); Neutrophils Percent Manual 53 % (46-73); Total Cells Counted 100
[2025-03-08 12:02] LABS: Lymphocytes Percent Manual 36 % (18-44)
[2025-03-08 12:03] LABS: Platelet Estimate Adequate (Adequate); Schistocytes None Seen
[2025-03-08 12:26] LABS: Ferritin 29 ng/mL (8-252); Folic Acid 16.1 ng/mL (8.6->20); Free T4 Free Thyroxine 1.23 ng/dL (0.76-1.46); Iron 111 ug/dL (50-170); Percent Iron Saturation 30 % (12-57); Thyroid Stimulating Hormone 2.71 uIU/mL (0.36-3.74); Vitamin B12 826 pg/mL (193-986)
--- OUTSIDE RECORDS SUMMARY | 2025-03-08 12:42 | XMS_ITS | Referral Summary ---
Author Organization [facility] Address [address] [place] [address] Care Team Providers Care Radius Grinder Name Role Phone Karina Salamanca MD Primary Care Provider Encounters Date Type Department Care Team Description 01/12/2025 1:10 PM CHIEF PHARMACIST - 01/12/2025 11:59 PM CHIEF PHARMACIST Hospital Encounter [facility] [address] [place] [address] History of thyroid cancer Discharge Disposition: Discharge to home or self care 01/12/2025 3:40 PM CHIEF PHARMACIST Office Visit [facility] Endocrinology Metabolism and Lipid [address] [facility] [address] [place] [address] [place] [address] Giuliana Manley MD Postoperative hypothyroidism (Primary Dx); [...] 08/04/2018 Assessment & Plan (12/09/2022 10:25 PM CHIEF PHARMACIST): Clinically euthyroid Continue current thyroid hormone replacement Check TSH/FT4 Assessment & Plan (11/21/2021 8:41 AM CHIEF PHARMACIST): Most recent TSH is <0.1, but Ms. [...] 61). Assessment & Plan (11/20/2020 1:59 PM CHIEF PHARMACIST): Clinically euthyroid and feeling well, although TSH [...] 08/04/2018 Assessment & Plan (12/09/2022 10:26 PM CHIEF PHARMACIST): No evidence of recurrence based on thyroid US today or physical exam Will follow Tg and Tg ab Assessment & Plan (11/21/2021 8:42 AM CHIEF PHARMACIST): Ms. Duran may have been a candidate [...] symptoms Assessment & Plan (11/20/2020 1:58 PM CHIEF PHARMACIST): No recurrence by Tg, Tg ab or [...] on file Legal Sex Female 6:10 AM CHIEF PHARMACIST Gender Identity Female 06/11/2018 10:33 AM CDT Sexual Orientation Straight 11/11/2020 6: 44 AM CHIEF PHARMACIST Last Filed Vital Signs Vital Sign Reading Time Taken Comments Blood Pressure 148/78 01/12/2025 3:05 PM CHIEF PHARMACIST Pulse 69 01/12/2025 3:05 PM CHIEF PHARMACIST Temperature 36.8 C (98.2 F) 01/12/2025 3:05 PM CHIEF PHARMACIST Respiratory Rate - - Oxygen Saturation 97% 10/02/2016 12:54 PM CDT Inhaled Oxygen Concentration - - Weight 58 kg (127 lb 12.8 oz) 01/12/2025 3:05 PM CHIEF PHARMACIST Height 165.1 cm (5' 5 ) 01/12/2025 3:05 PM CHIEF PHARMACIST Body Mass Index 21.27 01/12/2025 3:05 PM CHIEF PHARMACIST Plan of Treatment Not on file Procedures Procedure Name Priority Date/Time Associated Diagnosis Comments US THYROID Schedule Routine, Read Routine (OP Routine) 01/12/2025 2:16 PM CHIEF PHARMACIST History of thyroid cancer from Last 3 Months Results * US Thyroid (01/12/2025 2:16 PM CHIEF PHARMACIST) Anatomical Region Laterality Modality Head and Neck N/A Ultrasound 01/12/2025 2:32 PM CHIEF PHARMACIST Impressions 01/12/2025 2:32 PM CHIEF PHARMACIST 1. No evidence of tumor recurrence. Electronically signed by: Melissa Jean-Baptiste M.D. Narrative 01/12/2025 2:32 PM CHIEF PHARMACIST EXAMINATION: POST THYROIDECTOMY SONOGRAM HISTORY: 59-year-old woman [...] Melissa Jean-Baptiste M.D. us Giuliana Manley MD [facility] PROCEDURES Final Result from Last 3 Months Insurance [employer] [place] [employer] OPEN ACCESS [facility] [id number] Care Teams Radius Grinder Relationship Specialty Start Date End Date Karina Salamanca MD PCP - General 01/03/18
--- OUTSIDE RECORDS SUMMARY | 2025-03-08 12:42 | XMS_ITS | Clinical Summary ---
Author Organization [facility] Address [address] [place] [address] Care Team Providers Care Powerhouse Mechanic Apprentice Name Role Phone Karina Salamanca MD Primary Care Provider [phone] Allergies No known active allergies Medications omeprazole [...] 08/04/2018 Assessment & Plan (12/09/2022 10:25 PM LMFT): Clinically euthyroid Continue current thyroid hormone replacement Check TSH/FT4 Assessment & Plan (11/21/2021 8:41 AM LMFT): Most recent TSH is <0.1, but Ms. [...] 60). Assessment & Plan (11/20/2020 1:59 PM LMFT): Clinically euthyroid and feeling well, although TSH [...] 08/04/2018 Assessment & Plan (12/09/2022 10:26 PM LMFT): No evidence of recurrence based on thyroid US today or physical exam Will follow Tg and Tg ab Assessment & Plan (11/21/2021 8:42 AM LMFT): Ms. Duran may have been a candidate [...] symptoms Assessment & Plan (11/20/2020 1:58 PM LMFT): No recurrence by Tg, Tg ab or [...] Department Care Team Description 01/12/2025 3:40 PM LMFT Office Visit [facility] Endocrinology Metabolism and Lipid [address] [facility] 13th [place] [address] [place] [address] Giuliana Manley MD Postoperative hypothyroidism (Primary Dx); History of thyroid cancer 01/12/2025 1:10 PM LMFT - 01/12/2025 11:59 PM LMFT Hospital Encounter [facility] ([facility]) [address] [place] [address] History of thyroid cancer Discharge Disposition: Discharge [...] on file Legal Sex Female 6:10 AM LMFT Gender Identity Female 06/11/2018 10:33 AM CDT Sexual Orientation Straight 11/11/2020 6: 44 AM LMFT Obstetrics History Last Filed Vital Signs Vital Sign Reading Time Taken Comments Blood Pressure 148/78 01/12/2025 3:05 PM LMFT Pulse 69 01/12/2025 3:05 PM LMFT Temperature 36.8 C (98.2 F) 01/12/2025 3:05 PM LMFT Respiratory Rate - - Oxygen Saturation 97% 10/02/2016 12:54 PM CDT Inhaled Oxygen Concentration - - Weight 58 kg (127 lb 12.8 oz) 01/12/2025 3:05 PM LMFT Height 165.1 cm (5' 5 ) 01/12/2025 3:05 PM LMFT Body Mass Index 21.27 01/12/2025 3:05 PM LMFT Plan of Treatment Health Maintenance Due Date Last Done Comments Breast Cancer Screening-Mammogram 1966 Cervical Cancer Screening 1966 Colon Cancer Screening-Colonoscopy 1966 Depression Screening 1966 Hepatitis C Screening 1966 Hepatitis B Screening 1984 Regular Well Visit/Exam 18-64 1984 Zoster Vaccine (1 of 2) 2016 Influenza Vaccine (Season Ended) 2025 DTaP/Tdap/Td Vaccine (2 - Td or Tdap) 06/12/2028 06/12/2018 Pneumococcal vaccine <65 Aged Out No longer eligible based on patient's age to complete this topic Procedures Procedure Name Priority Date/Time Associated Diagnosis Comments US THYROID Schedule Routine, Read Routine (OP Routine) 01/12/2025 2:16 PM LMFT History of thyroid cancer from Last 3 Months Results * US Thyroid (01/12/2025 2:16 PM LMFT) Anatomical Region Laterality Modality Head and Neck N/A Ultrasound 01/12/2025 2:32 PM LMFT Impressions 01/12/2025 2:32 PM LMFT 1. No evidence of tumor recurrence. Electronically signed by: Melissa Jean-Baptiste M.D. Narrative 01/12/2025 2:32 PM LMFT EXAMINATION: POST THYROIDECTOMY SONOGRAM HISTORY: 59-year-old woman [...] Melissa Jean-Baptiste M.D. us Giuliana Manley MD [facility] PROCEDURES Final Result from Last 3 Months Insurance [employer] [facility] HEALTHLINK [facility] [id number] Care Teams Powerhouse Mechanic Apprentice Relationship Specialty Start Date End Date Karina Salamanca MD PCP - General 01/03/18
--- OUTSIDE RECORDS SUMMARY | 2025-03-08 12:42 | XMS_ITS | Data Portability ---
Author Organization [facility] Address [address] [place] [address] Care Team Providers Care Supervisor [place] Name Role Phone EDDIE SPARROW Primary Care [...] Vitamin D FU 1 year or prn [email or web address] Not available 10/23/2021 15:33:15 Plan of Treatment [...] as clini michelle samuels nted. Not Available [facility] (Lab) [address], [place], [address], 11/01/2021 20:00:29 Result Notes None recorded. Procedures Surgical History Date Name Laterality Status Provider Name and Address Organization Details Recorded Time 12/02/19 20 Date of Last Mammogram completed [facility] 10/23/2021 15:05:11 12/02/19 18 appendectomy completed [facility] 10/23/2021 14:50:59 12/02/19 16 thyroidectomy completed [facility] 10/23/2021 14:50:51 Imaging Results None [...] Updated DateTime 1 162.56 cm 20.9 kg/m2 21880.2 7 g 147 mm[Hg] 76 mm[Hg] 122 mm[Hg] 78 mm[Hg] [facility] 15:00:07 Social History None recorded. [...] available 2020 15:04:54 Medical History Condition Response Allergies (Food, seasonal, environmental ) N Other N Breast Cancer N Drug/Latex Allergies/Reactions N Blood Transfusion N Dermatologic Disorders N Lung Disease N Defects or Inherited Disease N Breast Problem N Gestational Diabetes N Hematologic disorders N Anesthesia Complications N History of STI N Deep Vein Thrombosis N Polycystic ovary syndrome N Anxiety Disorder N Autoimmune disease N Arthritis N Infertility N Polyps N Acid Reflux (GERD) N History of abnormal pap N Cancer N Stroke N Varicosities N Neurologic/Epilepsy N Endometriosis N High Cholesterol N Headaches N Fibromyalgia N Kidney Disease N Heart Problems N Kidney or Bladder Problems N Thyroid Problems N GI Problems N Eating Disorder N Anemia N Art (IVF or FET) N Psychiatric Illness N Ovarian Cancer N Diabetes N Pulmonary (TB, Asthma) N Hepatitis/Liver Disease N No Past Medical History N Eczema N Urinary Tract Infection N Abuse/Domestic Violence N Asthma N Trauma/Violence N Depression/ depression N Heart Disease N Pre-Eclampsia N Hypertension N Osteoporosis N Thrombophilias N Gynecological History Statement/Question Response Current Control Method None Date of Last Mammogram 12/02/2019 14 Obstetrics History GPAL:G 2 P 2 0 0 2 Type Value Full Term 2 Living 2 Total 2 Past Encounters Encounter ID Performer Location Encounter Start Date Encounter Closed Date Diagnosis/Indication Diagnosis SNOMED-CT Code Diagnosis ICD10 Code Diagnosis Note [id number] Haydee Mcdowell MD [facility] [address] [address] 10/23/2021 14:47:24 10/23/2021 15:35:05 Gynecologic examination 56333599 Z01.419 Atrophic vaginitis 86905 000 N95.2 Health Concerns Section Related Observation LastModified by Organization Detai ls LastModified Time None Recorded Concern Status LastModified by Organization Details LastModified Time None Recorded Advance Directives Directive None Recorded Payers Encounter Date Sequence Insurance Name Policy Number Policy Gutierrez Covered Member ID Gutierrez Member ID Guarantor Name 10/23/2021 1 [employer] - DOS PRIOR TO 21 - [facility] BENEFITS PLAN Kin Baxter [id number] OI Notes Date Note Type Note Provider Name and Address Organization Details Recorded Time 10/23/2021 text/html Patient is a 56yo who presents for an annual exam. menopause 48yo , no bleeding, no concerns. last pap-2016, all normal mammo-2020 colonoscopy-none dexa-none menopause-48yo sexually active-y seatbelts-y exercise-y depression-denie s domestic violence-denies tobacco-n concerns-n Haydee Mcdowell MD [address], [place], [address], [facility] 10/23/2021 15:33:49 OBGyn Episode Ob Episode Information Episode Created Date Number of Fetuses Patient Bloodtype Patient rh Status Prepregnancy Weight lbs Domestic Partner Domestic Partner Phone Father Name Field Artillery Radar Operator Status 10/23/20 1 CLOSED Fetus Data First Name Last Name Admitted to NICU Weight (g) Sex Living Outcome Pediatric Complications Fetus ID Race Codes Race Delivery Type M [id number] Lucas Calculation Initial Lucas Date Initial Exam [...] Domestic Partner Domestic Partner Phone Father Name Field Artillery Radar Operator Status 10/23/20 21 1 CLOSED Fetus Data First Name Last Name Admitted to NICU Weight (g) Sex Living Outcome Pediatric Complications Fetus ID Race Codes Race Delivery Type M [id number] Lucas Calculation Initial Lucas Date Initial Exam [...]
[2025-03-10 08:44] LABS: Thyroglobulin <0.1 ng/mL; Thyroglobulin Antibodies <1 IU/mL (< or = 1)
== END 2025-03-08 10:55 | disposition home or self-care (01) ==
LOC: CHSLAB 10:58
PROVIDERS: PCP Family Medicine; Visit Provider Student in an Organized Health Care Education/Training Program
DX: D72.819 Decreased white blood cell count, unspecified (principal); R53.83 Other fatigue; E89.0 Postprocedural hypothyroidism
CPT/HCPCS: 36415; 82607; 82728; 82746; 83540; 83550; 84432; 84439; 84443; 85025; 86800

== ENCOUNTER 2025-03-22 09:55 | Outpatient (CLI) | payer OTHER, SELFPAY ==
--- NOTE | 2025-03-22 10:53 | ECG_ITS ---
Test Date: 2025-03-22 11:10:23 Measurements Intervals [place] Rate: 62 P: 73 NH: 158 QRS: 83 QRSD: 78 T: 56 QT: 402 QTc: 411 Interpretive Statements SINUS RHYTHM VOLTAGE CRITERIA FOR LVH MINIMAL Q WAVES- ANTEROLAT/INF LEADS BASELINE ARTIFACT- I, II, III, AVR, AVL, AVF, V1 BORDERLINE ECG No previous ECG available for comparison Electronically Signed On 03-22-2025 11:16:10 CDT by Hung Aguila D.O.
--- OUTSIDE RECORDS SUMMARY | 2025-03-22 11:15 | XMS_ITS | Referral Summary ---
Author Organization [facility] Address [address] [place] [address] Care Team Providers Care Supervisor [place] Name Role Phone Karina Salamanca MD Primary Care Provider Encounters Date Type Department Care Team Description 01/12/2025 1:10 PM FACILITY PLANNER - 01/12/2025 11:59 PM FACILITY PLANNER Hospital Encounter [facility] ([facility]) [address] [place] [address] History of thyroid cancer Discharge Disposition: Discharge to home or self care 01/12/2025 3:40 PM FACILITY PLANNER Office Visit [facility] Endocrinology Metabolism and Lipid [address] [facility] 13th [place] [address] [place] [address] Giuliana Manley MD Postoperative hypothyroidism (Primary Dx); [...] 8 HOURS NEEDED FOR COLD SORES Active diclofenac DR (VOLTAREN) 50 mg EC tablet 50 MG ORALLY TWICE A DAY 12/25/19 25 Active Synthroid 75 mcg tabletIndications: History of thyroid cancer,Postoperati ve hypothyroidism TAKE 1 TABLET BY MOUTH 1 DAY PER WEEK IN THE MORNING 30-60 MINS PRIOR TO BREAKFAST 12 tablet 2 03/16/20 25 Active Synthroid 88 mcg tabletIndications: History of thyroid cancer,Postoperati ve hypothyroidism TAKE 1 TABLET BY MOUTH 6 DAYS PER WEEK IN THE MORNING 30-60 MINS PRIOR TO BREAKFAST 72 tablet 2 03/16/20 25 Active levothyroxine (SYNTHROID) 75 mcg tabletIndications: History of thyroid cancer,Postoperati ve hypothyroidism TAKE 1 TABLET BY MOUTH 1 DAY PER WEEK IN THE MORNING 30-60 MINS PRIOR TO BREAKFAST 12 tablet 2 08/24/20 24 025 Discontin ued(Reord er) levothyroxine (SYNTHROID) 88 mcg tabletIndications: History of thyroid cancer,Postoperati ve hypothyroidism TAKE 1 TABLET BY MOUTH 6 DAYS PER WEEK IN THE MORNING 30-60 MINS PRIOR TO BREAKFAST 72 tablet 2 08/24/20 24 025 Discontin ued(Reord er) Synthroid 50 mcg tablet Take 1 tablet (50 mcg total) by mouth daily 28 tablet 01/12/20 25 025 Discontin ued(Alter susan therapy) Active Problems Problem Noted Date Diagnosed Date Laryngopharyngeal reflux (LPR) 08/03/2020 Postoperative hypothyroidism 08/04/2018 Assessment & Plan (12/09/2022 10:25 PM FACILITY PLANNER): Clinically euthyroid Continue current thyroid hormone replacement Check TSH/FT4 Assessment & Plan (11/21/2021 8:41 AM FACILITY PLANNER): Most recent TSH is <0.1, but Ms. [...] 60). Assessment & Plan (11/20/2020 1:59 PM FACILITY PLANNER): Clinically euthyroid and feeling well, although TSH [...] 08/04/2018 Assessment & Plan (12/09/2022 10:26 PM FACILITY PLANNER): No evidence of recurrence based on thyroid US today or physical exam Will follow Tg and Tg ab Assessment & Plan (11/21/2021 8:42 AM FACILITY PLANNER): Ms. Duran may have been a candidate [...] symptoms Assessment & Plan (11/20/2020 1:58 PM FACILITY PLANNER): No recurrence by Tg, Tg ab or [...] on file Legal Sex Female 6:10 AM FACILITY PLANNER Gender Identity Female 06/11/2018 10:33 AM CDT Sexual Orientation Straight 11/11/2020 6: 44 AM FACILITY PLANNER Last Filed Vital Signs Vital Sign Reading Time Taken Comments Blood Pressure 148/78 01/12/2025 3:05 PM FACILITY PLANNER Pulse 69 01/12/2025 3:05 PM FACILITY PLANNER Temperature 36.8 C (98.2 F) 01/12/2025 3:05 PM FACILITY PLANNER Respiratory Rate - - Oxygen Saturation 97% 10/02/2016 12:54 PM CDT Inhaled Oxygen Concentration - - Weight 58 kg (127 lb 12.8 oz) 01/12/2025 3:05 PM FACILITY PLANNER Height 165.1 cm (5' 5 ) 01/12/2025 3:05 PM FACILITY PLANNER Body Mass Index 21.27 01/12/2025 3:05 PM FACILITY PLANNER Plan of Treatment Not on file Procedures Procedure Name Priority Date/Time Associated Diagnosis Comments T4, FREE Routine 03/08/2025 12:05 PM CDT Postoperative hypothyroidism TSH Routine 03/08/2025 12:05 PM CDT Postoperative hypothyroidism CBC WITH AUTO DIFFERENTIAL Routine 03/08/2025 12:03 PM CDT VITAMIN B12 AND FOLATE Routine 03/08/2025 12:03 PM CDT IRON PROFILE W/ IBC Routine 03/08/2025 12:03 PM CDT THYROGLOBULIN REFLEX TO MS OR IA Routine 03/08/2025 10:43 AM CDT History of thyroid cancer THYROGLOBULIN ANTIBODIES Routine 03/08/2025 10:43 AM CDT History of thyroid cancer US THYROID Schedule Routine, Read Routine (OP Routine) 01/12/2025 2:16 PM FACILITY PLANNER History of thyroid cancer from Last 3 Months Results * T4, free (03/08/2025 12:05 PM CDT) Blood us Giuliana Manley MD LAB BLOOD ORDERABLES Final Resu lt EXTERNAL LAB * TSH (03/08/2025 12:05 PM CDT) Blood Giuliana Manley MD LAB BLOOD ORDERABLES Final Resu lt Performing Organization Address [facility] Co de Phone Number EXTERNAL LAB * CBC WITH AUTO DIFFERENTIAL (03/08/2025 12:03 PM CDT) Historical Provider LAB BLOOD ORDERABLES Josephine l Result Performing Organization Address [facility] de Phone Number EXTERNAL LAB * Vitamin B12 and Folate (03/08/2025 12:03 PM CDT) Blood [facility] Provider LAB BLOOD ORDERABLES Josephine l Result Performing Organization Address [facility] de Phone Number EXTERNAL LAB * Iron profile w/ IBC (03/08/2025 12:03 PM CDT) Blood [facility] Provider LAB BLOOD ORDERABLES Josephine l Result Performing Organization Address [facility] de Phone Number EXTERNAL LAB * Thyroglobulin reflex to MS or IA (03/08/2025 10:43 AM CDT) Blood Giuliana Manley MD LAB BLOOD ORDERABLES Final Resu lt Performing Organization Address [facility] Co de Phone Number EXTERNAL LAB * Thyroglobulin antibodies (03/08/2025 10:43 AM CDT) Blood Giuliana Manley MD LAB BLOOD ORDERABLES Final Resu lt Performing Organization Address [facility] Co de Phone Number EXTERNAL LAB * US Thyroid (01/12/2025 2:16 PM FACILITY PLANNER) Anatomical Region Laterality Modality Head and Neck N/A Ultrasound 01/12/2025 2:32 PM FACILITY PLANNER Impressions 01/12/2025 2:32 PM FACILITY PLANNER 1. No evidence of tumor recurrence. Electronically signed by: Melissa Jean-Baptiste M.D. Narrative 01/12/2025 2:32 PM FACILITY PLANNER EXAMINATION: POST THYROIDECTOMY SONOGRAM HISTORY: 59-year-old woman [...] Melissa Jean-Baptiste M.D. us Giuliana Manley MD [facility] PROCEDURES Final Result from Last 3 Months Insurance [employer] [facility] HEALTHLINK OPEN ACCESS [facility] [id number] Care Teams Supervisor [place] Relationship Specialty Start Date End Date Karina Salamanca MD PCP - General 01/03/18
--- OUTSIDE RECORDS SUMMARY | 2025-03-22 11:15 | XMS_ITS | Data Portability ---
Author Organization [facility] Address [address] [place] [address] Care Team Providers Care Fence Gate Assembler Name Role Phone EDDIE SPARROW Primary Care Provider [phone] Assessment Encounter Date Assessment Date Assessment LastModified [...] Vitamin D FU 1 year or prn Not available 10/23/2021 15:33:15 Plan of Treatment [...] as clini michelle samuels nted. Not Available [facility] (Lab) [address], [place], [address], 11/01/2021 20:00:29 Result Notes None recorded. Procedures Surgical History Date Name Laterality Status Provider Name and Address Organization Details Recorded Time 12/02/19 20 Date of Last Mammogram completed [facility] 10/23/2021 15:05:11 12/02/19 18 appendectomy completed [facility] 10/23/2021 14:50:59 12/02/19 16 thyroidectomy completed [facility] 10/23/2021 14:50:51 Imaging Results [...] Updated DateTime 1 162.56 cm 20.9 kg/m2 79761.2 7 g 147 mm[Hg] 76 mm[Hg] 122 mm[Hg] 78 mm[Hg] [facility] 15:00:07 Social History None [...] SNOMED-CT Code Diagnosis ICD10 Code Diagnosis Note [id number] Haydee Mcdowell MD [place] [address] [address] 10/23/2021 14:47:24 10/23/2021 15:35:05 Gynecologic examination [id number] Z01.419 Atrophic vaginitis 70457 000 N95.2 Health Concerns Section Related Observation LastModified by Organization Detai ls LastModified Time None Recorded Concern Status LastModified by Organization Details LastModified Time None Recorded Advance Directives Directive None Recorded Payers Encounter Date Sequence Insurance Name Policy Number Policy Gutierrez Covered Member ID Gutierrez Member ID Guarantor Name 10/23/2021 1 [employer] - DOS PRIOR TO 21 - [facility] BENEFITS PLAN Kin Baxter [id number] OI Notes Date Note Type Note Provider Name and Address Organization Details Recorded Time 10/23/2021 text/html Patient is a 56yo who presents for an annual exam. menopause 48yo , no bleeding, no concerns. last pap-2016, all normal mammo-2020 colonoscopy-none dexa-none menopause-48yo sexually active-y seatbelts-y exercise-y depression-denie s domestic violence-denies tobacco-n concerns-n Haydee Mcdowell MD [address], [place], [address], [facility] 10/23/2021 15:33:49 OBGyn Episode Ob Episode Information Episode Created Date Number of Fetuses Patient Bloodtype Patient rh Status Prepregnancy Weight lbs Domestic Partner Domestic Partner Phone Father Name Clinical Support Nurse Status 10/23/20 1 CLOSED Fetus Data First Name Last Name Admitted to NICU Weight (g) Sex Living Outcome Pediatric Complications Fetus ID Race Codes Race Delivery Type M [id number] Lucas Calculation Initial Lucas Date Initial Exam [...] Domestic Partner Domestic Partner Phone Father Name Clinical Support Nurse Status 10/23/20 21 1 CLOSED Fetus Data First Name Last Name Admitted to NICU Weight (g) Sex Living Outcome Pediatric Complications Fetus ID Race Codes Race Delivery Type M [id number] Lucas Calculation Initial Lucas Date Initial Exam [...]
--- OUTSIDE RECORDS SUMMARY | 2025-03-22 11:15 | XMS_ITS | Clinical Summary ---
Author Organization [facility] Address [address] [place] [address] Care Team Providers Care Top Lift Cutter Name Role Phone Karina Salamanca MD Primary Care Provider [phone] Allergies No known active allergies Medications omeprazole [...] 08/04/2018 Assessment & Plan (12/09/2022 10:25 PM COLLATING MACHINE OPERATOR): Clinically euthyroid Continue current thyroid hormone replacement Check TSH/FT4 Assessment & Plan (11/21/2021 8:41 AM COLLATING MACHINE OPERATOR): Most recent TSH is <0.1, but Ms. [...] 60). Assessment & Plan (11/20/2020 1:59 PM COLLATING MACHINE OPERATOR): Clinically euthyroid and feeling well, although TSH [...] 08/04/2018 Assessment & Plan (12/09/2022 10:26 PM COLLATING MACHINE OPERATOR): No evidence of recurrence based on thyroid US today or physical exam Will follow Tg and Tg ab Assessment & Plan (11/21/2021 8:42 AM COLLATING MACHINE OPERATOR): Ms. Duran may have been a candidate [...] symptoms Assessment & Plan (11/20/2020 1:58 PM COLLATING MACHINE OPERATOR): No recurrence by Tg, Tg ab or [...] Department Care Team Description 01/12/2025 3:40 PM COLLATING MACHINE OPERATOR Office Visit [facility] Endocrinology Metabolism and Lipid [address] [facility] Advanced Medicine 13th [place] [address] [place] [address] Giuliana Manley MD Postoperative hypothyroidism (Primary Dx); History of thyroid cancer 01/12/2025 1:10 PM COLLATING MACHINE OPERATOR - 01/12/2025 11:59 PM COLLATING MACHINE OPERATOR Hospital Encounter [facility] [address] [place] [address] History of thyroid cancer Discharge Disposition: Discharge [...] on file Legal Sex Female 6:10 AM COLLATING MACHINE OPERATOR Gender Identity Female 06/11/2018 10:33 AM CDT Sexual Orientation Straight 11/11/2020 6: 44 AM COLLATING MACHINE OPERATOR Obstetrics History Last Filed Vital Signs Vital Sign Reading Time Taken Comments Blood Pressure 148/78 01/12/2025 3:05 PM COLLATING MACHINE OPERATOR Pulse 69 01/12/2025 3:05 PM COLLATING MACHINE OPERATOR Temperature 36.8 C (98.2 F) 01/12/2025 3:05 PM COLLATING MACHINE OPERATOR Respiratory Rate - - Oxygen Saturation 97% 10/02/2016 12:54 PM CDT Inhaled Oxygen Concentration - - Weight 58 kg (127 lb 12.8 oz) 01/12/2025 3:05 PM COLLATING MACHINE OPERATOR Height 165.1 cm (5' 5 ) 01/12/2025 3:05 PM COLLATING MACHINE OPERATOR Body Mass Index 21.27 01/12/2025 3:05 PM COLLATING MACHINE OPERATOR Plan of Treatment Health Maintenance Due Date [...] Read Routine (OP Routine) 01/12/2025 2:16 PM COLLATING MACHINE OPERATOR History of thyroid cancer from Last 3 Months Results * T4, free (03/08/2025 12:05 PM CDT) Blood Result [facility] Giuliana Manley MD LAB BLOOD ORDERABLES Final Resu lt Performing Organization Address [facility] Co de Phone Number EXTERNAL LAB * TSH (03/08/2025 12:05 PM CDT) Blood Result [facility] Giuliana Manley MD LAB BLOOD ORDERABLES Final Resu lt Performing Organization Address [facility] Co de Phone Number EXTERNAL LAB * CBC WITH AUTO DIFFERENTIAL (03/08/2025 12:03 PM CDT) Result [facility] Provider LAB BLOOD ORDERABLES Josephine l Result Performing Organization Address [facility] Co de Phone Number EXTERNAL LAB * Vitamin B12 and Folate (03/08/2025 12:03 PM CDT) Blood Result [facility] Provider LAB BLOOD ORDERABLES Josephine l Result Performing Organization Address [facility] Co de Phone Number EXTERNAL LAB * Iron profile w/ IBC (03/08/2025 12:03 PM CDT) Blood Result [facility] Provider LAB BLOOD ORDERABLES Josephine l Result Performing Organization Address City/[facility]/ZIP Co de Phone Number EXTERNAL LAB * Thyroglobulin reflex to MS or IA (03/08/2025 10:43 AM CDT) Blood Giuliana Manley MD LAB BLOOD ORDERABLES Final Resu lt Performing Organization Address [facility]/ZIP Co de Phone Number EXTERNAL LAB * Thyroglobulin antibodies (03/08/2025 10:43 AM CDT) Blood Giuliana Manley MD LAB BLOOD ORDERABLES Final Resu lt Performing Organization Address [facility] Co de Phone Number EXTERNAL LAB * US Thyroid (01/12/2025 2:16 PM COLLATING MACHINE OPERATOR) Anatomical Region Laterality Modality Head and Neck N/A Ultrasound 01/12/2025 2:32 PM COLLATING MACHINE OPERATOR Impressions 01/12/2025 2:32 PM COLLATING MACHINE OPERATOR 1. No evidence of tumor recurrence. Electronically signed by: Melissa Jean-Baptiste M.D. Narrative 01/12/2025 2:32 PM COLLATING MACHINE OPERATOR EXAMINATION: POST THYROIDECTOMY SONOGRAM HISTORY: 59-year-old woman [...] Melissa Jean-Baptiste M.D. us Giuliana Manley MD IMG US PROCEDURES Final Result from Last 3 Months Insurance AG[employer] ? [facility] [employer] OPEN ACCESS [facility] [id number] Care Teams Top Lift Cutter Relationship Specialty Start Date End Date Karina Salamanca MD PCP - General 01/03/18
[2025-03-22 11:19] LABS: White Blood Count 4.7 K/mm3 (4.5-10.0)
[2025-03-22 11:27] LABS: Hemoglobin A1C 5.5 % (<5.7)
[2025-03-22 11:32] LABS: Albumin Level 4.6 g/dL (3.5-5.1); Anion Gap 8 mmol/L (4-12); Blood Urea Nitrogen 14 mg/dL (7-17); Carbon Dioxide 28 mmol/L (22-30); Chloride 104 mmol/L (98-107); Estimated Glomerular Filt Rate > 60; Glucose 95 mg/dL (65-110); Potassium 4.3 mmol/L (3.4-5.0); Sodium 140 mmol/L (137-145)
[2025-03-22 11:35] LABS: Urine Cotinine NEGATIVE
== END 2025-03-22 09:56 | disposition home or self-care (01) ==
LOC: ANHSURGERY 09:58
PROVIDERS: PCP Family Medicine; Visit Provider Orthopaedic Surgery
DX: Z01.818 Encounter for other preprocedural examination (principal); M16.12 Unilateral primary osteoarthritis, left hip
CPT/HCPCS: 80048; 80307; 82040; 83036; 85048; 87081; 87181; 93005

== ENCOUNTER 2025-04-12 00:22 | Day surgery (SDC) | payer OTHER, SELFPAY ==
--- NOTE | 2025-03-22 09:59 | PC.NURSE ---
Report to the Outpatient Waiting Room, entrance under the green pavilion located off [facility], at time _6 AM on date __04/12/25 . Planned Procedure Time: ___7;30 AM .? Time changes happen often and if your time is changed the preop area will call you the afternoon before. - You and your visitor will be asked to self-screen and do not enter if you have any COVID symptoms. Please call surgeon if you need to reschedule. - A mask is optional within the hospital at this time. Patients may have clear liquids (water, carbonated beverages, clear teas, apple juice) until 3 hours prior to surgery ( 4:30 AM) with a maximum of 20 ounces. - No food from midnight until time of surgery and no smoking, or chewing tobacco (or any form of nicotine). No chewing gum, candy or mints. - Take only the following medications with a SIP of water on the morning of surgery: ___LEVOTHYROXINE DO NOT STOP ANY OF YOUR OTHER PRESCRIPTION MEDICATIONS PRIOR TO SURGERY EXCEPT THE FOLLOWING Hold all vitamins and supplements for 3 days per anesthesiologist.LAST DOSE 04/08/25 Medications to discontinue per physician __DICLOFENAC HOLD 7 DAYS PRE OP PER DR HAAS Date to take last dose___04/04/25 MAY TAKE TYLENOL IF NEEDED FOR PAIN Please no make-up, nail nepali, hairspray, perfume, deodorant, or body powder the day of surgery.? No jewelry (including any body piercings) or valuables the day of surgery, leave them at home.? Please take a shower or bath the night before, or the morning of, surgery with an antibacterial soap.? Wear comfortable, loose fitting clothing.? Children are encouraged to wear pajamas. - Jewelry must be removed prior to entering the operating room.? Rings and piercings that are not removed may be cut off. - The hospital will not accept responsibility for valuables.? - Please leave all valuables, including medications, at home the day of surgery. If you are going home after surgery, a licensed taxi cab driver must drive you home.? - NO public transportation without another adult if you receive anesthesia. - We recommend that an adult stay with you for 24 hours following discharge. - We also recommend that you do not drive, make important decision, drink alcoholic beverages, or take any drugs that were not prescribed by your health care provider for at least 24 hours after your discharge time. For Pediatric surgeries, we recommend two adults accompany the child home. Follow any additional instructions given to you from your surgeon. VERBAL AND WRITTEN instructions given to PATIENT and asked if any additional questions and then verbalized understanding. Patient advised to call surgeon office or pre surgery nurse liaison [phone] if any additional questions.
[2025-03-22 10:01] VITALS: BMI 21.3
[2025-03-22 10:53] VITALS: BP 164/80; PULSE 61; RESP 18; TEMP 36.9; O2SAT 100
--- NOTE | 2025-04-09 09:28 | PM.IMHP ---
H&P: HPI History of Present Illness Date/Time: 04/09/25 09:28 Chief Complaint: Left hip DJD Narrative: 59-year-old female presents today for a left anterior total hip arthroplasty. She has been having progressively worsening symptoms in the left hip for almost a year. She has had progression of the arthritis in her hip over the course of the last 9 months. At this point she is [id number]. She has been taking diclofenac 50 mg only once a day. She has tried twice a day but this seems to bother her stomach. She does supplement Tylenol with this. Her symptoms however are becoming more problematic. They are affecting her daily lifestyle and daily activities. Patient feels this point she would like to proceed with total hip arthroplasty rather than continue nonsurgical treatment. Review of Systems Review of Systems: All systems reviewed & are unremarkable except as noted in HPI and below PMFSH Past Medical History Medical History (Updated 03/28/25 @ 20:59 by Karina Salamanca MD) Thyroid cancer GERD (gastroesophageal reflux disease) HSV (herpes simplex virus) infection Hypothyroidism Surgical History Surgical History History of thyroidectomy Family History Family History Other Diabetes mellitus Family history of cardiovascular disease Family history of coronary artery disease Hypertension Social History Social History Smoking status: Never smoker Second hand tobacco smoke exposure: No Additional smoking assessment comments: DENIES ANY FORM OF TOBACCO USR Alcohol intake: current Alcohol use details: rarely Substance use: never Substance use type: does not use Do You Feel Safe in your Home?: Yes Lack of Transportation: No Lack of Food: Never True Current Housing: I Have Housing Concerned About Future Housing: No Difficulty Paying Gas/Electric Bills: No Difficulty Paying for Meds: No Currently Unemployed: No Education: Bachelor's Degree Difficulty w/ Childcare or Family Care: No Living arrangements: with family Occupation/Education: retired Additional occupation/education comments: [employer] Gender identity (if verbalized by the patient): Female Spiritual care concerns: No Meds Home Medications and Allergies Home Medications ?Medication ?Instructions ?Recorded ?Confirmed ?Type omeprazole 40 mg capsule,delayed 40 mg PO DAILY 02/08/20 03/26/25 History release levothyroxine 88 mcg capsule 88 mcg PO DAILY 07/23/22 03/26/25 History valacyclovir 1 gram tablet 1,000 mg PO Q8H PRN cold sores 10/12/24 03/26/25 Rx (Valtrex) #270 tabs levothyroxine 75 mcg capsule 75 mcg PO DAILY 01/15/25 03/26/25 History diclofenac sodium 50 mg See Rx Instructions .Route 01/20/25 03/26/25 Rx tablet,delayed release .COMPLEX #60 tabs Lactobacillus acidophilus 10 100 mmu cells PO DAILY 03/22/25 03/26/25 History billion cell capsule (Probacap) acetaminophen 500 mg tablet 1,000 mg PO BID PRN pain 03/22/25 03/26/25 History (Tylenol Extra Strength) calcium carb-ergocalciferol (vit tablet PO DAILY 03/22/25 03/26/25 History D2) 600 mg calcium-200 unit tablet mupirocin 2 % topical ointment 1 applic topical BID #22 grams 03/24/25 03/26/25 Rx tramadol 50 mg tablet 50 mg PO Q6H PRN pain #30 tabs 03/26/25 03/26/25 Rx Allergies Allergy/AdvReac Type Severity Reaction Status Date / Time No Known Allergies Allergy Verified 03/22/25 10:02 Exam Narrative: 59-year-old female alert pleasant. She is 5 ft 4 and 125 lb BMI is 21.1. Left hip flexes to 120 with groin pain, internal rotation of 15 causing groin pain external rotation of 30 without discomfort. She walks without limp. Stinchfield maneuver is negative. She has normal abduction strength lateral position no tenderness over the greater trochanter. No edema in either lower extremity. 2+ posterior tibial pulse absent dorsalis pedis pulse. Skin around the hip and groin crease look normal. Resp: Auscultation: clear to auscultation bilaterally Cardio: Rate: regular rate Rhythm: regular rhythm Assessment and Plan Assessment and plan (1) Osteoarthritis of left hip: Qualifiers: Osteoarthritis type: primary Qualified Code(s): M16.12 - Unilateral primary osteoarthritis, left hip Code(s): M16.12 - Unilateral primary osteoarthritis, left hip Status: Acute Assessment and Plan: 59-year-old female who has had progression the osteoarthritis in the left hip over the course the last 8 months. At this point she is [id number]-ld-[id number]. She is having symptoms on a daily basis and they are affecting her daily lifestyle. She would like to proceed with total hip arthroplasty at this point. Surgical procedure as well as the risks and complications were discussed in detail questions were answered and we will proceed. She will see her primary care doctor for pre-surgical clearance. She will stop her diclofenac and any other aspirin ibuprofen products 1 week prior to surgery. Patient's nasal swab was positive for oxacillin sensitive Staph aureus she has been decolonizing. Hemoglobin is 12.8 platelets 255. Chem panel was all within normal limits creatinine is 0.72
[2025-04-12] VITALS (13 sets, daily range): BP systolic 99–140; BP diastolic 52–73; PULSE 59–91; RESP 11–18; TEMP 36.3–37.2; O2SAT 99–100; BMI 20.7
--- NOTE | ~2025-04-12 | XR_ITS ---
EXAMINATION: XR hip LT 1V w AP pelvis DATE: 04/12/2025 13:34 INDICATION: Status post left total hip arthroplasty TECHNIQUE: Anteroposterior view of the pelvis and cross-table lateral views of the left hip were obta ined. COMPARISON: None. FINDINGS: Newly placed noncemented left total hip arthroplasty appears well seated in near-anatomic alignment. The acetabular component is affixed with a single screw. No fracture. Moderate osteoarthritis at the right hip. Expected soft tissue gas at the operative bed. IMPRESSION: 1. Left total hip arthroplasty in near-anatomic alignment, negative for postoperative purposes. Reviewed, dictated and finalized at location A. IMPRESSION: 1. Left total hip arthroplasty in near-anatomic alignment, negative for postope rative purposes.
--- NOTE | ~2025-04-12 | XR_ITS ---
EXAMINATION: XR surgery orthopedic DATE: 04/12/2025 10:52 INDICATION: Left total hip arthroplasty TECHNIQUE: Single fluoroscopic AP image of the left hip was obtained during procedure performed by Dr Maddie Ward. Radiologist was not present for the imaging or procedure. The amount of fluoroscopy time u sed during this procedure was 0.9 minutes. Total DAP was 0.216 mGym^2. COMPARISON: None. FINDINGS: Intraoperative image during placement of a left total hip arthroplasty which appears in near anatomic alignment on the single image provided. No fractures in the visualized bones. Expected lucent soft tissue gas at the operative bed. IMPRESSION: 1. Expected appearance during left total hip arthroplasty. Reviewed, dictated and finalized at location A.
--- OUTSIDE RECORDS SUMMARY | 2025-04-12 00:25 | XMS_ITS | Referral Summary ---
Author Organization [facility] Address [address] [place] [address] Care Team Providers Care Tire Worker Name Role Phone Karina Salamanca MD Primary Care Provider [phone] Allergies No known active allergies Medications omeprazole [...] ve hypothyroidism TAKE 1 TABLET BY MOUTH DAILY IN THE MORNING 30-60 MINS PRIOR TO BREAKFAST 90 tablet 2 04/01/20 25 Active levothyroxine (SYNTHROID) 75 mcg tabletIndications: [...] 01/12/20 25 025 Discontin ued(Alter susan therapy) Synthroid 88 mcg tabletIndications: History of thyroid cancer,Postoperati ve hypothyroidism TAKE 1 TABLET BY MOUTH 6 DAYS PER WEEK IN THE MORNING 30-60 MINS PRIOR TO BREAKFAST 72 tablet 2 03/16/20 25 025 Discontin ued(Reord er) Active Problems Problem Noted Date Diagnosed Date Laryngopharyngeal reflux (LPR) 08/03/2020 Postoperative hypothyroidism 08/04/2018 Assessment & Plan (12/09/2022 10:25 PM PIPE LAYER): Clinically euthyroid Continue current thyroid hormone replacement Check TSH/FT4 Assessment & Plan (11/21/2021 8:41 AM PIPE LAYER): Most recent TSH is <0.1, but Ms. [...] 60). Assessment & Plan (11/20/2020 1:59 PM PIPE LAYER): Clinically euthyroid and feeling well, although TSH [...] 08/04/2018 Assessment & Plan (12/09/2022 10:26 PM PIPE LAYER): No evidence of recurrence based on thyroid US today or physical exam Will follow Tg and Tg ab Assessment & Plan (11/21/2021 8:42 AM PIPE LAYER): Ms. Duran may have been a candidate [...] symptoms Assessment & Plan (11/20/2020 1:58 PM PIPE LAYER): No recurrence by Tg, Tg ab or [...] on file Legal Sex Female 6:10 AM PIPE LAYER Gender Identity Female 06/11/2018 10:33 AM CDT Sexual Orientation Straight 11/11/2020 6: 44 AM PIPE LAYER Last Filed Vital Signs Vital Sign Reading Time Taken Comments Blood Pressure 148/78 01/12/2025 3:05 PM PIPE LAYER Pulse 69 01/12/2025 3:05 PM PIPE LAYER Temperature 36.8 C (98.2 F) 01/12/2025 3:05 PM PIPE LAYER Respiratory Rate - - Oxygen Saturation 97% 10/02/2016 12:54 PM CDT Inhaled Oxygen Concentration - - Weight 58 kg (127 lb 12.8 oz) 01/12/2025 3:05 PM PIPE LAYER Height 165.1 cm (5' 5 ) 01/12/2025 3:05 PM PIPE LAYER Body Mass Index 21.27 01/12/2025 3:05 PM PIPE LAYER Plan of Treatment Not on file Procedures Procedure Name Priority Date/Time Associated Diagnosis Comments T4, FREE Routine 03/08/2025 12:05 PM CDT Postoperative hypothyroidism TSH Routine 03/08/2025 12:05 PM CDT Postoperative hypothyroidism CBC WITH AUTO DIFFERENTIAL Routine 03/08/2025 12:03 PM CDT VITAMIN B12 AND FOLATE Routine 12:03 PM CDT IRON PROFILE W/ IBC Routine 03/08/2025 1 2:03 PM CDT THYROGLOBULIN REFLEX TO MS OR IA Routine 03/08/2025 10:43 AM CDT History of thyroid cancer THYROGLOBULIN ANTIBODIES Routine 025 10:43 AM CDT History of thyroid cancer from Last 3 Months Results * T4, free (03/08/2025 12:05 PM CDT) Blood Giuliana Manley MD LAB BLOOD ORDERABLES Final Resu lt Performing Organization Address [facility] Co de Phone Number EXTERNAL LAB * TSH (03/08/2025 12:05 PM CDT) Blood Giuliana Manley MD LAB BLOOD ORDERABLES Final Resu lt EXTERNAL LAB * CBC WITH AUTO DIFFERENTIAL (03/08/2025 12:03 PM CDT) Milady Hernández MD LAB BLOOD ORDERABLES Josephine l Result Performing Organization Address [facility] Co de Phone Number EXTERNAL LAB * Vitamin B12 and Folate (03/08/2025 12:03 PM CDT) Blood us Historical Provider LAB BLOOD ORDERABLES Josephine l Result Performing Organization Address City/[facility]/ZIP Co de Phone Number EXTERNAL LAB * Iron profile w/ IBC (03/08/2025 12:03 PM CDT) Blood Historical Provider LAB BLOOD ORDERABLES Josephine l Result EXTERNAL LAB * Thyroglobulin reflex to MS or IA (03/08/2025 10:43 AM CDT) Blood Giuliana Manley MD LAB BLOOD ORDERABLES Final Resu lt Performing Organization Address [facility] Co de Phone Number EXTERNAL LAB * Thyroglobulin antibodies (03/08/2025 10:43 AM CDT) Blood Giuliana Manley MD LAB BLOOD ORDERABLES Final Resu lt Performing Organization Address [facility] Co de Phone Number EXTERNAL LAB from Last 3 Months Insurance [employer] [facility] [id number] [facility] [id number] Care Teams Tire Worker Relationship Specialty Start Date End Date Karina Salamanca MD [facility] - General 01/03/18
--- OUTSIDE RECORDS SUMMARY | 2025-04-12 00:25 | XMS_ITS | Clinical Summary ---
Author Organization [facility] Address [address] [place] [address] Care Team Providers Care Sterile Preparation Technician Name Role Phone Karina Salamanca MD Primary Care Provider [phone] Allergies No known active allergies Medications omeprazole [...] 08/04/2018 Assessment & Plan (12/09/2022 10:25 PM AQUATIC PHYSIOTHERAPIST): Clinically euthyroid Continue current thyroid hormone replacement Check TSH/FT4 Assessment & Plan (11/21/2021 8:41 AM AQUATIC PHYSIOTHERAPIST): Most recent TSH is <0.1, but Ms. [...] 60). Assessment & Plan (11/20/2020 1:59 PM AQUATIC PHYSIOTHERAPIST): Clinically euthyroid and feeling well, although TSH [...] 08/04/2018 Assessment & Plan (12/09/2022 10:26 PM AQUATIC PHYSIOTHERAPIST): No evidence of recurrence based on thyroid US today or physical exam Will follow Tg and Tg ab Assessment & Plan (11/21/2021 8:42 AM AQUATIC PHYSIOTHERAPIST): Ms. Duran may have been a candidate [...] symptoms Assessment & Plan (11/20/2020 1:58 PM AQUATIC PHYSIOTHERAPIST): No recurrence by Tg, Tg ab or [...] Tg Ab now -Repeat thyroid US now Surgical History Surgery Date Site/Laterality Comments APPENDECTOMY [...] on file Legal Sex Female 6:10 AM AQUATIC PHYSIOTHERAPIST Gender Identity Female 06/11/2018 10:33 AM CDT Sexual Orientation Straight 11/11/2020 6: 44 AM AQUATIC PHYSIOTHERAPIST Obstetrics History Last Filed Vital Signs Vital Sign Reading Time Taken Comments Blood Pressure 148/78 01/12/2025 3:05 PM AQUATIC PHYSIOTHERAPIST Pulse 69 01/12/2025 3:05 PM AQUATIC PHYSIOTHERAPIST Temperature 36.8 C (98.2 F) 01/12/2025 3:05 PM AQUATIC PHYSIOTHERAPIST Respiratory Rate - - Oxygen Saturation 97% 10/02/2016 12:54 PM CDT Inhaled Oxygen Concentration - - Weight 58 kg (127 lb 12.8 oz) 01/12/2025 3:05 PM AQUATIC PHYSIOTHERAPIST Height 165.1 cm (5' 5 ) 01/12/2025 3:05 PM AQUATIC PHYSIOTHERAPIST Body Mass Index 21.27 01/12/2025 3:05 PM AQUATIC PHYSIOTHERAPIST Plan of Treatment Health Maintenance Due Date [...] free (03/08/2025 12:05 PM CDT) Blood Result [facility] Giuliana Manley MD LAB BLOOD ORDERABLES Final Resu lt Performing Organization Address [facility] de Phone Number EXTERNAL LAB * TSH (03/08/2025 12:05 PM CDT) Blood Result [facility] Giuliana Manley MD LAB BLOOD ORDERABLES Final Resu lt Performing Organization Address [facility] de Phone Number EXTERNAL LAB * CBC WITH AUTO DIFFERENTIAL (03/08/2025 12:03 PM CDT) Result [facility] Provider LAB BLOOD ORDERABLES Josephine l Result Performing Organization Address [facility] de Phone Number EXTERNAL LAB * Vitamin B12 and Folate (03/08/2025 12:03 PM CDT) Blood Result [facility] Provider LAB BLOOD ORDERABLES Josephine l Result Performing Organization Address [facility] de Phone Number EXTERNAL LAB * Iron profile w/ IBC (03/08/2025 12:03 PM CDT) Blood Result [facility] Historical Provider LAB BLOOD ORDERABLES Josephine l Result Performing Organization Address [facility] Co de Phone Number EXTERNAL LAB * Thyroglobulin reflex to MS or IA (03/08/2025 10:43 AM CDT) Blood Result [facility] Guiliana Manley MD LAB BLOOD ORDERABLES Final Resu lt Performing Organization Address [facility] de Phone Number EXTERNAL LAB * Thyroglobulin antibodies (03/08/2025 10:43 AM CDT) Blood us Giuliana Manley MD LAB BLOOD ORDERABLES Final Resu lt EXTERNAL LAB from Last 3 Months Insurance [employer] [facility] [employer] OPEN ACCESS [facility] [id number] Care Teams Sterile Preparation Technician Relationship Specialty Start Date End Date Karina Salamanca MD PCP - General 01/03/18
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
[2025-04-12] MEDS: LACTATED RINGERS 1,000 ML 30 ML IV CONT ×2 (06:20→11:17)
[2025-04-12] MEDS: VANCOMYCIN 750 MG/NS 250 ML 750 MG/250 ML BAG 250 MG IVPB (06:45)
[2025-04-12] MEDS: ACETAMINOPHEN 500 MG TABLET 1000 MG PO (07:05)
[2025-04-12] MEDS: TRANEXAMIC ACID 1,000MG/ISO100 1,000 MG/100 ML BAG 200 MG IVPB (07:05)
--- NOTE | 2025-04-12 07:16 | WPDHPUPDATE1 ---
History and Physical Update Update Date/Time: 04/12/25 07:16 History and Physical has been reviewed, including an updated exam of the patient. There are NO changes in the patient's condition. Risks, benefits, and alternatives have been discussed and questions answered. Patient agrees to proceed with procedure.
--- NOTE | 2025-04-12 07:29 | P.PNAN_ITS ---
Anes - Initial Pre Proc Eval Procedure: Operation Date: 04/12/25 07:30 Proposed Procedures p Left Total Hip Arthroplasty, Direct Anterior Approach - Mandeep Ward MD Date/Time: 04/12/25 07:29 Surgeon: Mandeep Ward MD Pre Op Diagnosis: OA left hip Patient Data Age: 59 Gender: F Height: 1.64 m Weight: 57.3 kg Last Vital Signs Temp 98.4 F 03/22/25 10:53 Pulse 61 03/22/25 10:53 Resp 18 03/22/25 10:53 BP 164/80 H 03/22/25 10:53 Pulse Ox 100 03/22/25 10:53 O2 Del Method Room Air 03/22/25 10:53 Allergies Allergy/AdvReac Type Severity Reaction Status Date / Time No Known Allergies Allergy Verified 03/22/25 10:02 Home Medications ?Medication ?Instructions ?Recorded ?Confirmed ?Type omeprazole 40 mg capsule,delayed 40 mg PO DAILY 02/08/20 03/26/25 History release levothyroxine 88 mcg capsule 88 mcg PO DAILY 07/23/22 03/26/25 History valacyclovir 1 gram tablet 1,000 mg PO Q8H PRN cold sores 10/12/24 03/26/25 Rx (Valtrex) #270 tabs levothyroxine 75 mcg capsule 75 mcg PO DAILY 01/15/25 03/26/25 History diclofenac sodium 50 mg See Rx Instructions .Route 01/20/25 03/26/25 Rx tablet,delayed release .COMPLEX #60 tabs Lactobacillus acidophilus 10 100 mmu cells PO DAILY 03/22/25 03/26/25 History billion cell capsule (Probacap) acetaminophen 500 mg tablet 1,000 mg PO BID PRN pain 03/22/25 03/26/25 History (Tylenol Extra Strength) calcium carb-ergocalciferol (vit tablet PO DAILY 03/22/25 03/26/25 History D2) 600 mg calcium-200 unit tablet mupirocin 2 % topical ointment 1 applic topical BID #22 grams 03/24/25 03/26/25 Rx tramadol 50 mg tablet 50 mg PO Q6H PRN pain #30 tabs 03/26/25 03/26/25 Rx Laboratory Tests 04/12/25 06:32 Blood Type O Positive Antibody Screen Pending Patient hx anesthesia problems: post op nausea/vomiting Family hx anesthesia problems: none Results Review: All pre-operative results and documents have been reviewed as part of the pre- operative evaluation. [facility], [facility] Past Medical History Medical History (Updated 03/28/25 @ 20:59 by Karina Salamanca MD) Thyroid cancer GERD (gastroesophageal reflux disease) HSV (herpes simplex virus) infection Hypothyroidism Surgical History Surgical History History of thyroidectomy Family History Family History Other Diabetes mellitus Family history of cardiovascular disease Family history of coronary artery disease Hypertension Social History Social History Smoking status: Never smoker Second hand tobacco smoke exposure: No Additional smoking assessment comments: DENIES ANY FORM OF TOBACCO USR Alcohol intake: current Alcohol use details: rarely Substance use: never Substance use type: does not use Do You Feel Safe in your Home?: Yes Lack of Transportation: No Lack of Food: Never True Current Housing: I Have Housing Concerned About Future Housing: No Difficulty Paying Gas/Electric Bills: No Difficulty Paying for Meds: No Currently Unemployed: No Education: Bachelor's Degree Difficulty w/ Childcare or Family Care: No Living arrangements: with family Occupation/Education: retired Additional occupation/education comments: [employer] Gender identity (if verbalized by the patient): Female Spiritual care concerns: No Anes - Eval Final PreProcedure Day of Procedure 04/12/25 07:29 Patient weight: normal Heart: regular rate and rhythm Lungs: clear to auscultation Airway: Mallampati scale class II Neurological: alert and oriented Last oral intake: >/= 8 hours ASA classification: III Emergent: no Anesthetic plan: proceed Anesthesia type and monitoring: general ETT and standard monitoring Results Review: All pre-operative results and documents have been reviewed as part of the pre- operative evaluation. Informed Consent: The patient's anesthetic plan and its attendant risks and benefits were discussed with the patient/family/POA. Questions were solicited and answers provided to the satisfaction of the patient/family/POA.
[2025-04-12] MEDS: SCOPOLAMINE 1 MG PATCH 1 PATCH TRANSDERM (07:30)
[2025-04-12] MEDS: ceFAZolin 2 GM/D5W 50 ML 2 GM/50 ML BAG IVPB ×3 (07:37→23:26)
[2025-04-12] MEDS: ceFAZolin SODIUM 1 GM VIAL 3 GM (08:28)
[2025-04-12] MEDS: SODIUM CHLORIDE 0.9% IV 37.7 ML, MORPHINE SULFATE INJ (*CRX) 2 MG, ROPivacaine HCL 1% 2... INFILTRATE (08:28)
[2025-04-12] MEDS: TRANEXAMIC ACID 1,000 MG/10 ML AMPUL 1000 MG IV PUSH (08:29)
[2025-04-12] MEDS: ceFAZolin SODIUM 1 GM VIAL 2 GM IV PUSH (10:29)
[2025-04-12] MEDS: KETOROLAC 15 MG/ML VIAL (*BKC) IV PUSH ×3 (10:30→23:25)
--- NOTE | 2025-04-12 11:02 | W.PM.PROC2 ---
Procedure Note - Detailed Date of Procedure 04/12/25 Pre-op Diagnosis OA left hip Post-op Diagnosis Same Procedure Performed Osteoarthritis left hip Surgeon Mandeep Ward MD Link Train[employer] Maintenance Man Adriane Anesthesia General Description of Procedure Patient was brought to the operating room and general anesthesia was administered. She received 2 g of Ancef weight based vancomycin 1 g of TXA preoperatively. The feet were padded in boots applied and [facility] and the left hip prepped draped usual fashion. SCDs were on the calves and running during the procedure. A 10 cm longitudinal incision was made starting 3 cm lateral to the ASIS. Dissection was carried down to the fascia over the tensor fascia jerry which was longitudinally incised along its midportion and interval between TFL and rectus femoris developed. Crossing branches of ascending lateral femoral circumflex vessels were ligated with suture divided. Ileal capsule Uziel elevated off the anterior capsule and hip abducted internally rotated and the gluteus minimus elevated off the lateral capsule. Inverted T capsulotomy was performed and femoral neck osteotomy made according to preoperative templating. The femoral head measured 48 mm in diameter. It was wider at its periphery due to hypertrophic osteophyte formation. Labrum was excised. A fluoroscopic view showed us that we could remove a little bit more neck which would assist with acetabular preparation an additional 5 mm of femoral neck was removed at this time. The femur was externally rotated extended and the interval between the conjoined tendon and piriformis was incised lateral to the femoral neck which allowed the conjoined tendon to recess a little bit. We did not release posterior to the femoral neck as she seemed to have adequate mobility. With the leg back in the horizontal position external rotation and traction acetabulum was exposed. We medialized with a 42 Reamer to the medial teardrop and reamed up to 47 mm which gave excellent peripheral acetabular bone contact with the Reamer. We reamed to 48 and the 48 mm emphasis cup was chosen and this was impacted and achieved a tight fit. A single screw placed in the ilium. The cup was placed at 40? of abduction anteversion such at the anterior rim was just under the anterior rim of the acetabulum. 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 Thirty-six inner diameter liner was seated without difficulty. Leg was externally rotated extended with the table hook in place we broached up to a size 4. Conservative seeding was carried out and on trialing we could see that we were still too proud. We countersunk the broach an additional 3 mm and again trialing with the +5 head standard offset neck, we had excellent stability but I still felt we were a little bit longer than our goal of lengthening her about 2-3 mm or about 2 mm longer than the other hip which had moderate cartilage loss superiorly. We countersunk additional 2 mm and this gave the exact leg length as planned. There was appropriate soft tissue tension and stability on trialing. We confirmed that there was complete torsional stability of the broach in the canal. We calcar planed and inserted the size 4 standard offset Actis stem which fully seated with a tight fit. Her medial neck calcar bone thickness was very thick. No cracks in the calcar. One more trialing with the size +5 head showed appropriate stability and soft tissue tension. The real +5 ceramic by 36 mm diameter head was impacted on the clean and dried trunnion. The wound was thoroughly irrigated with antibiotic solution again and hip reduced stability reconfirmed. The superior limb of the capsulotomy repaired with 2. Vicryl. Local anesthetic cocktail was injected in the periarticular soft tissues. Fascia closed with running 1. Vicryl. Skin closed with 2 subcutaneous Vicryl and glue EBL was 250 cc. There was 200 cc save the Cell Saver not enough to give any blood back. Two additional g of Ancef and 1 g of TXA given time wound closure. There were no complications. Her bone quality seemed excellent so we will allow her to be weight-bearing as tolerated postoperatively. [facility] Billing Surgery - Charge Forward: Surgery Billing (Left total hip arthroplasty)
--- NOTE | 2025-04-12 11:21 | PM.OP ---
Procedure Note - Brief Procedure Note - Brief Date of procedure: 04/12/25 OA left hip Procedure performed: Left anterior total hip arthroplasty Surgeon: THELMA Somers Findings: 59-year-old female underwent left anterior total hip arthroplasty on 04/12. I was involved in the procedure including positioning the patient on the OR table in 1st assisting through the time surgery. Total time spent was 3-1/2 hours
[2025-04-12] MEDS: fentaNYL CITRATE INJ (*CRX) 100 MCG/2 ML VIAL 25 MCG IV PUSH ×2 (11:51→12:01)
[2025-04-12] MEDS: SODIUM CHLORIDE 0.9% IV 1,000 ML 125 ML IV CONT (13:31)
[2025-04-12] MEDS: ACETAMINOPHEN 325 MG TABLET 650 MG PO ×3 (13:31→21:08)
[2025-04-12] MEDS: oxyCODONE HCL (*CRX) 2.5 MG TAB IR PO (14:05)
[2025-04-12] MEDS: ONDANSETRON INJ 4 MG/2 ML VIAL IV PUSH (14:48)
[2025-04-12] MEDS: VANCOMYCIN 1,000 MG/NS 250 ML 1,000 MG/250 ML BAG 250 MG IVPB (18:15)
[2025-04-12] MEDS: FAMOTIDINE 20 MG TABLET PO (21:08)
[2025-04-13] MEDS: ACETAMINOPHEN 325 MG TABLET 650 MG PO ×3 (02:06→10:14)
[2025-04-13 04:10] VITALS: BP 111/50; PULSE 61; RESP 18; TEMP 36.6; O2SAT 100
[2025-04-13 04:59] LABS: Basophils Percent Auto 0.3 % (0.2-1.2); Eosinophils Percent Auto 0.3 % (0-4.4); Hematocrit 28.4 % (37.0-47.0); Hemoglobin 9.2 g/dL (12.0-15.0); Immature Granulocyte Absolute 0.02 K/mm3 (0.00-0.031); Immature Granulocyte Percent A 0.3 % (0-0.5); Lymphocytes Absolute Auto 1.37 K/mm3 (0.9-3.2); Lymphocytes Percent Auto 20.5 % (18.3-44.2); Mean Corpuscular HGB Conc 32.4 g/dl (32-36); Mean Corpuscular Hemoglobin 31.9 pg (26-34); Mean Corpuscular Volume 98.6 fl (80-100); Mean Platelet Volume 10.9 fl (7.4-10.4); Monocytes Absolute Auto 0.7 K/mm3 (0.1-0.6); Neutrophils Absolute Auto 4.6 K/mm3 (1.3-6.7); Neutrophils Percent Auto 68.6 % (45.5-73.1); Platelet Count Result 173 k/mm3 (150-375); Red Blood Count 2.88 M/mm3 (4.2-5.4); Red Cell Distribution Width 14.2 % (11.5-14.5); White Blood Count 6.7 K/mm3 (4.5-10.0)
[2025-04-13] MEDS: VANCOMYCIN 1,000 MG/NS 250 ML 1,000 MG/250 ML BAG 250 MG IVPB (05:09)
[2025-04-13 05:16] LABS: Anion Gap 6 mmol/L (4-12); Blood Urea Nitrogen 12 mg/dL (7-17); Calcium 8.4 mg/dL (8.4-10.2); Carbon Dioxide 28 mmol/L (22-30); Chloride 105 mmol/L (98-107); Estimated CRCL calculation 70 ml/min; Estimated Glomerular Filt Rate > 60; Glucose 87 mg/dL (65-110); Potassium 3.7 mmol/L (3.4-5.0); Sodium 139 mmol/L (137-145)
[2025-04-13] MEDS: ceFAZolin 2 GM/D5W 50 ML 2 GM/50 ML BAG IVPB (06:44)
[2025-04-13] MEDS: LEVOTHYROXINE SODIUM 88 MCG TABLET PO (06:44)
--- NOTE | 2025-04-13 08:02 | P.PNAN_ITS ---
Anes - Prog Note Post-Op Date/Time: 04/13/25 08:02 Cardiovascular status: normal Respiratory status: normal Airway patency: baseline Mental status: baseline Vital Signs: Last Vital Signs Temp 36.6 C 04/13/25 04:10 Pulse 61 04/13/25 04:10 Resp 18 04/13/25 04:10 BP 111/50 L 04/13/25 04:10 Pulse Ox 100 04/13/25 04:10 O2 Del Method Room Air 04/12/25 21:00 O2 Flow Rate 6 04/12/25 11:30 Pain Score (VAS): 2 I/O: Intake & Output 04/12/25 04/13/25 04/13/25 23:59 07:59 15:59 Intake Total 930 290 Output Total 10 Balance 930 280 Laboratory Tests 04/13/25 04:37 04/13/25 04:37 04/13/25 04:37 WBC 6.7 RBC 2.88 L Hgb 9.2 L Hct 28.4 L MCV 98.6 MCH 31.9 MCHC 32.4 RDW 14.2 Plt Count 173 MPV 10.9 H Immature Gran % (Auto) 0.3 Neut % (Auto) 68.6 Lymph % (Auto) 20.5 [place] % (Auto) 10.0 H Eos % (Auto) 0.3 Baso % (Auto) 0.3 Lymph # (Auto) 1.37 [place] # (Auto) 0.7 H Eos # (Auto) 0.0 Baso # (Auto) 0.0 Abs Immat Gran (auto) 0.02 Absolute Neuts (auto) 4.6 Absolute Nucleated RBC 0.000 Nucleated RBC % 0.0 Sodium 139 Potassium 3.7 Chloride 105 Carbon Dioxide 28 Anion Gap 6 BUN 12 Creatinine 0.67 L Estim Creat Clear Calc 70 Estimated GFR > 60 Glucose 87 Calcium 8.4 Patient Feedback: Patient satisfied with anesthetic care.
--- NOTE | 2025-04-13 09:02 | P.PNOP_ITS ---
Progress Note: A&P Assessment and Plan (1) Status post left hip replacement: Code(s): Z96.642 - Presence of left artificial hip joint Status: Acute Assessment and Plan: The patient is postop day 1 after left hip replacement. She seems to be doing very well. She has been up and moving around easily. This morning she notes more anterior thigh soreness which is fairly typical. She only took 1 of the 2.5 mg oxycodone tablets yesterday and other than that she has just been using the Tylenol for pain control. She has no hip her thigh swelling today the wound looks normal she has intact sensation her left lower extremity in wiggles her toes. She is alert and oriented. Hemoglobin 9.2 is acute blood loss anemia. Creatinine 0.67. Patient feels comfortable for discharge. She is weight-bearing as tolerated. Postoperative instructions were reviewed with her and her in detail. Subjective Subjective Date/Time Seen: 04/13/25 09:02 Objective Data Vital Signs Vital Signs: Vital Signs - 24 hr 04/12/25 11:17 04/12/25 11:30 04/12/25 11:45 Temperature 37.2 C Pulse Rate 91 82 84 Respiratory Rate 11 L 14 16 Blood Pressure 106/53 L 115/61 117/57 L Pulse Oximetry 100 100 100 Oxygen Delivery Simple Face Mask Simple Face Mask Room Air Oxygen Flow Rate 6 6 04/12/25 12:00 04/12/25 12:15 04/12/25 12:30 Temperature 36.8 C 36.3 C L Pulse Rate 74 87 71 Respiratory Rate 16 16 18 Blood Pressure 119/62 106/59 L 108/73 Pulse Oximetry 99 99 100 Oxygen Delivery Room Air Room Air Oxygen Flow Rate 04/12/25 13:15 04/12/25 14:03 04/12/25 14:31 Temperature 36.3 C L Pulse Rate 68 Respiratory Rate 18 Blood Pressure 111/57 L Pulse Oximetry 99 Oxygen Delivery Room Air Room Air Oxygen Flow Rate 04/12/25 15:10 04/12/25 16:20 04/12/25 18:10 Temperature 36.5 C 36.4 C L 36.5 C Pulse Rate 68 62 59 L Respiratory Rate 18 16 18 Blood Pressure 99/52 L 100/54 L 116/64 Pulse Oximetry 99 100 99 Oxygen Delivery Oxygen Flow Rate 04/12/25 20:43 04/12/25 21:00 04/12/25 23:59 Temperature 36.6 C 36.9 C Pulse Rate 59 L 64 Respiratory Rate 18 18 Blood Pressure 116/64 102/52 L Pulse Oximetry 99 100 Oxygen Delivery Room Air Oxygen Flow Rate 04/13/25 04:10 Temperature 36.6 C Pulse Rate 61 Respiratory Rate 18 Blood Pressure 111/50 L Pulse Oximetry 100 Oxygen Delivery Oxygen Flow Rate Intake/Output Intake/Output: Intake & Output 04/10/25 04/11/25 04/12/25 04/13/25 23:59 23:59 23:59 23:59 Intake Total 1130 290 Output Total 10 Balance 1130 280 Meds/Results Medications: Active Medications Generic Name Dose Route Start Last Admin Trade Name Freq PRN Reason Stop Dose Admin Acetaminophen 650 mg 04/12/25 14:00 04/13/25 06:44 Acetaminophen 325 Mg Tablet PO 650 mg Q4H GARY Administration Apixaban 2.5 mg 04/13/25 09:00 Apixaban 2.5 Mg Tablet PO Q12HR [facility] Celecoxib 200 mg 04/13/25 09:00 Celecoxib 200 Mg Capsule PO DAILY [facility] Cephalexin HCl 500 mg 04/13/25 13:00 Cephalexin 500 Mg Capsule PO TID [facility] Famotidine 20 mg 04/12/25 21:00 04/12/25 21:08 Famotidine 20 Mg Tablet PO 20 mg Q12HR [facility] Administration Levothyroxine Sodium 88 mcg 04/13/25 06:30 04/13/25 06:44 Levothyroxine Sodium 88 Mcg Tablet PO 88 mcg DAILY@0630 [facility] Administration Morphine Sulfate 2 mg 04/12/25 12:25 Morphine Sulfate (*Crx) 2 Mg/Ml Inj IV PUSH Q2H PRN Breakthrough Pain Rated 4-6 or NPO Naloxone HCl 0.1 mg 04/12/25 12:25 Naloxone Hcl 0.4 Mg/Ml Vial IV PUSH Q2M PRN Opiate Reversal Ondansetron HCl 4 mg 04/12/25 12:25 04/12/25 14:48 Ondansetron Inj 4 Mg/2 Ml Vial IV PUSH 4 mg Q4H PRN Administration Nausea And Vomiting Oxycodone HCl 5 mg 04/12/25 12:25 Oxycodone Hcl (*Crx) 5 Mg Tab Ir PO Q4H PRN Pain Rated 7-10 Oxycodone HCl 2.5 mg 04/12/25 14:00 04/13/25 05:05 Oxycodone Hcl (*Crx) 2.5 Mg Tab Ir PO Not Given Q4H [facility] Polyethylene Glycol 17 gm 04/13/25 09:00 Polyethylene Glycol 3350 17 Gm Powd.Pack PO QAM [facility] Senna/Docusate Sodium 1 tab 04/12/25 17:00 04/12/25 17:36 Senna/Docusate Sodium Tablet PO Not Given BID [facility] Radiology Results: ITS Impressions Intraoperative X-Ray 04/12/25 11:24 IMPRESSION: 1. Expected appearance during left total hip arthroplasty. Hip/Pelvis X-Ray 04/12/25 13:41 IMPRESSION: 1. Left total hip arthroplasty in near-anatomic alignment, negative for postoperative purposes. Labs Labs: Laboratory Results - last 24 hr 04/13/25 04:37 WBC 6.7 RBC 2.88 L Hgb 9.2 L Hct 28.4 L MCV 98.6 MCH 31.9 MCHC 32.4 RDW 14.2 Plt Count 173 MPV 10.9 H Immature Gran % (Auto) 0.3 Neut % (Auto) 68.6 Lymph % (Auto) 20.5 [place] % (Auto) 10.0 H Eos % (Auto) 0.3 Baso % (Auto) 0.3 Lymph # (Auto) 1.37 [place] # (Auto) 0.7 H Eos # (Auto) 0.0 Baso # (Auto) 0.0 Abs Immat Gran (auto) 0.02 Absolute Neuts (auto) 4.6 Absolute Nucleated RBC 0.000 Nucleated RBC % 0.0 Sodium 139 Potassium 3.7 Chloride 105 Carbon Dioxide 28 Anion Gap 6 BUN 12 Creatinine 0.67 L Estim Creat Clear Calc 70 Estimated GFR > 60 Glucose 87 Calcium 8.4
[2025-04-13] MEDS: CELECOXIB 100 MG CAPSULE PO (09:33)
[2025-04-13] MEDS: FAMOTIDINE 20 MG TABLET PO (09:33)
[2025-04-13] MEDS: APIXABAN 2.5 MG TABLET PO (09:33)
[2025-04-13] MEDS: SENNA/DOCUSATE SODIUM TABLET 1 TAB PO (09:34)
== END 2025-04-13 10:25 | disposition home or self-care (01) ==
LOC: ANHSURGERY 05:58 → ANH2MED 12:28
PROVIDERS: Physician Assistant Surgical; PCP Family Medicine; Visit Provider Orthopaedic Surgery
PROC: (CPT 27130; principal; 2025-04-12 07:30)
DX: M16.12 Unilateral primary osteoarthritis, left hip (principal); D62 Acute posthemorrhagic anemia
CPT/HCPCS: 27130; 36415; 73501; 80048; 85025; 86850; 86900; 86901; 97110; 97161; 97165; 97530; 97535; 99199; A9270; C1776; J0171; J0690; J1100; J1885; J2003; J2250; J2270; J2405; J2704; J2795; J3010; J3370; J7030; J7120

== ENCOUNTER 2025-05-25 08:37 | Outpatient (CLI) | payer OTHER, SELFPAY ==
[2025-05-25 09:54] LABS: Free T4 Free Thyroxine 1.48 ng/dL (0.78-2.19)
== END 2025-05-25 08:38 | disposition home or self-care (01) ==
LOC: CHSLAB 08:40
PROVIDERS: PCP Family Medicine
DX: E89.0 Postprocedural hypothyroidism (principal)
CPT/HCPCS: 36415; 84439; 84443